=== PATIENT | female | born 1970 | race Caucasian/White ===

== ENCOUNTER 2020-06-08 10:46 | Outpatient (REF) | payer OTHER, SELFPAY ==
--- NOTE | ~2020-06-08 | MM_ITS ---
EXAMINATION: MM SCREENING DIGITAL BREAST TOMOSYNTHESIS, BILATERAL CLINICAL INFORMATION: Screening. Asymptomatic. Remote prior mammography from 2006 purged and no longer available for direct comparison. The lifetime risk of breast cancer based on the Tyrer-Cuzick Model is 5%. COMPARISON: Mammography report only, 08/28/2005. TECHNIQUE: Digital breast tomosynthesis is performed in both the craniocaudal and mediolateral oblique views along with computer-aided detection (CAD). Synthesized 2D images are generated from the tomosynthesis. FINDINGS: There are scattered areas of fibroglandular density (ACR BI-RADS breast composition Category b). Breast tissue composition borders on predominantly fatty. There is no significant mass or architectural abnormality. No abnormal calcifications. The axilla and skin contours are unremarkable. MM/MM tomosynthesis screening BI IMPRESSION: No mammographic evidence of malignancy. ASSESSMENT: BI-RADS 1: Negative RECOMMENDATION: Routine annual mammography screening. This patient's information was entered into a reminder system with a target due date for their next mammogram.
== END 2020-06-08 10:47 | disposition home or self-care (01) ==
LOC: HO.MAMMO 10:46
PROVIDERS: PCP Internal Medicine; Visit Provider Internal Medicine
DX: Z12.31 Encounter for screening mammogram for malignant neoplasm of breast (principal)
CPT/HCPCS: 77063; 77067

== ENCOUNTER 2020-07-05 11:56 | Day surgery (SDC) | payer OTHER, SELFPAY ==
[2020-06-28 17:12] VITALS: BMI 25.0
--- NOTE | 2020-07-04 10:00 | P.CONAN_ITS ---
Documented by User: Charlotte Fish 07/04/20 10:01 HPI - Anesthesia Eval Consult details Narrative: 50yo F for Colonoscopy [facility] Past Medical History Medical History (Updated 06/28/20 @ 17:10 by Ina Marlow) Asthma Cyst Hx of allergic reaction Smoker Wears dentures Surgical History Surgical History (Updated 06/28/20 @ 17:10 by Ina Marlow) Hx of tonsillectomy Hx of tubal ligation Social History Social History (Updated 06/28/20 @ 17:11 by Ina Marlow) Smoking Status: Current every day smoker Tobacco Type: Cigarette Cigarettes Per Day: 10 Years Smoked: 20 Use of substances other than those prescribed or required for medical reasons: No Advance Directives: No Advance Directives Information Provided: No Meds Allergies Allergy/AdvReac Type Severity Reaction Status Date / Time aspirin [ASPIRIN] Allergy Unknown Unknown Verified 03/23/20 14:33 Penicillins [PENICILLINS] Allergy Unknown Unknown Verified 03/23/20 14:33 Home Medications Medication Instructions Recorded Confirmed Last Taken Type albuterol sulfate [ProAir HFA] 2 puff INHALATION Q4-6H PRN 03/23/20 06/28/20 Unknown History ergocalciferol (vitamin D2) 1 cap PO QWEEK 03/23/20 03/23/20 Unknown History Exam Exam Date and Time: July 04, 2020 1000 Height,Weight and Vital Signs: Height 5 ft 5 in Weight 68.039 kg Assessment and Plan Assessment Anesthesia Assessment: Chart Reviewed Documented by User: Carlos Owusu MD 07/05/20 12:16 [facility] Past Medical History Medical History (Updated 06/28/20 @ 17:10 by Ina Marlow) Asthma Cyst Hx of allergic reaction Smoker Wears dentures Surgical History Surgical History (Updated 06/28/20 @ 17:10 by Ina Marlow) Hx of tonsillectomy Hx of tubal ligation Social History Social History (Updated 03/09/21 @ 17:11 by Ina Huizar Smoking Status: Current every day smoker Tobacco Type: Cigarette Cigarettes Per Day: 10 Years Smoked: 20 Use of substances other than those prescribed or required for medical reasons: No Advance Directives: No Advance Directives Information Provided: No Meds Allergies Allergy/AdvReac Type Severity Reaction Status Date / Time aspirin [ASPIRIN] Allergy Unknown Unknown Verified 03/23/20 14:33 Penicillins [PENICILLINS] Allergy Unknown Unknown Verified 03/23/20 14:33 Home Medications Medication Instructions Recorded Confirmed Last Taken Type albuterol sulfate [ProAir HFA] 2 puff INHALATION Q4-6H PRN 03/23/20 06/28/20 Unknown History ergocalciferol (vitamin D2) 1 cap PO QWEEK 03/23/20 03/23/20 Unknown History Exam Airway Mallampati Class: II TM Dist: >3cm Neck ROM: Full Denture: Upper Partial: Lower Loose/Missing/Broken Teeth: Yes Heart: RRR Lungs: NL Assessment and Plan Assessment Anesthesia Assessment: Anesthesia Plan Discussed and Chart Reviewed Final Anesthetic Review NPO: Yes ASA Class: II Final Preanesthetic Review: No Changes in Pt Med Stat, Meds/Allgs Chart Revie wed, Consent Obtained/Reviewed and Anes Risks/Benef Reviewed Patient Risk: Low Procedure Risk: Low Anesthetic Plan Anesthetic Plan: MAC: Disposition: Standard PACU
[2020-07-05 12:11] VITALS: BP 146/103; PULSE 80; RESP 18; TEMP 36.1; O2SAT 95
--- NOTE | 2020-07-05 12:21 | P.HPSUR_ITS ---
Pre-Procedural Eval Section B Chief Complaint: screening Details of Present Illness: Colon cancer screening had had prev sched in March but cancelled due to risk exposure family to Covid. No clinical changes and she did not get Covid. Relevant Family History (Specify if Yes): No Relevant Social History: Tobacco Use ( light cigarette smoker) Present Medications: see Short Stay Collaborative assessment Medical History: Significant History History of Previous Operations: Relevant previous surgery/procedure and date(s) (None listed.) Allergies: Allergies Allergy/AdvReac Type Severity Reaction Status Date / Time aspirin [ASPIRIN] Allergy Unknown Unknown Verified 03/23/20 14:33 Penicillins [PENICILLINS] Allergy Unknown Unknown Verified 03/23/20 14:33 Review of Systems Sugical H&P ROS: Negative: Constitution, Cardiovascular, Respiratory, Allergic/I mmunologic and Gastrointestinal Exam Surgical H&P Exam: Normal: HEENT, Normal: Heart, Normal: Lungs, Normal: Extremities, Normal: Abdomen, Normal: Skin and Normal: Neurological Plan Diagnosis/Plan: Unchanged I have reviewed the history and physical and performed a pertinent physical examination on my patient. No changes have occurred unless specified.Yes
[2020-07-05] MEDS: Lactated Ringers 1,000 ML 100 ML IVCONT (12:26)
[2020-07-05 12:55] VITALS: BP 104/78; PULSE 65; RESP 16; TEMP 36.2; O2SAT 98
--- NOTE | 2020-07-05 12:58 | PM.OP ---
Brief Operative Note Date of Service: 07/05/20 Pre-op diagnosis: Colon cancer screening Post-op diagnosis: other (Normal exam; 1+ Internal hemorrhoids) Procedure: Colonoscopy Implants: None Surgeon: Danielle Dudley MD Anesthesia: MAC (MD Kati) Estimated blood loss (mL): 0 Pathology: none sent Condition: stable Disposition: PACU
[2020-07-05 13:10] VITALS: BP 148/106; PULSE 82; RESP 16; TEMP 36.2; O2SAT 95
--- NOTE | 2020-07-10 10:51 | W.PM.OPN ---
Operative Note Operative Note Date of Service: 07/05/20 Narrative: Pre-op diagnosis: Colon cancer screening Post-op diagnosis: other (Normal exam; 1+ Internal hemorrhoids) Procedure: Colonoscopy Implants: None Surgeon: Danielle Dudley MD Anesthesia: MAC (MD Kati) FINDINGS: BARBIE: normal Adult slim colonoscope was introduced without difficulty. It was navigated through, rectosigmoid, descending, transverse colon. Continued to advance through Hepatic Flexure, ascending colon into the cecum. Appendiceal orifice and ileocecal valve were well seen. PREP: Good. Few areas needed some flushing. No mucosal lesions were seen. Slow rotational views were done on withdrawal of scope. ARV was clear. Estimated blood loss (mL): 0 Pathology: none sent Condition: stable Disposition: PACU PLAN: Repeat asymptomatic screening in this lady with no known high risk history would be 10 years.
== END 2020-07-05 13:55 | disposition home or self-care (01) ==
PROVIDERS: Visit Provider Internal Medicine Gastroenterology
PROC: 0DJD8ZZ Inspection of Lower Intestinal Tract, Via Natural or Artificial Opening Endoscopic (ICD-10-PCS; CPT 45378; principal; 2020-07-05 11:50)
DX: Z12.11 Encounter for screening for malignant neoplasm of colon (principal); K64.8 Other hemorrhoids; J45.909 Unspecified asthma, uncomplicated; F17.210 Nicotine dependence, cigarettes, uncomplicated; Z79.899 Other long term (current) drug therapy; Z88.0 Allergy status to penicillin; Z88.8 Allergy status to other drugs, medicaments and biological substances
CPT/HCPCS: 45378

== ENCOUNTER → 2020-07-27 13:42 | Outpatient (BNVA) | payer OTHER, SELFPAY | PROVIDERS: Visit Provider Physician Assistant ==

== ENCOUNTER 2020-08-24 10:47 | Outpatient (REF) | payer OTHER, SELFPAY ==
[2020-08-24 11:24] LABS: COVID-19 Test Negative (Negative)
== END 2020-08-24 10:48 | disposition home or self-care (01) ==
LOC: HO.LAB 10:47
PROVIDERS: Visit Provider Internal Medicine
DX: Z20.822 Contact with and (suspected) exposure to COVID-19 (principal)
CPT/HCPCS: 36415; 87635; C9803

== ENCOUNTER 2020-11-21 09:04 | Outpatient (REF) | payer OTHER, SELFPAY ==
--- NOTE | 2020-11-21 | PFT_ITS ---
FLOWS: FEV1 63% of predicted at 1.81 L. FVC 65% of predicted at 2.30 L. FEV1 to FVC ratio of 0.79. Positive bronchodilator response. LUNG VOLUMES: Total lung capacity 82% of predicted at 4.30 L. Residual volume 106% of predicted at 1.99 L. Slow vital capacity 69% of predicted at 2.31 L. Expiratory reserve volume 56% of predicted at 0.60 L. Diffusion capacity is mildly decreased. IMPRESSION: Moderate to severe obstructive ventilatory defect with positive bronchodilator response. Decreased diffusion capacity suggests emphysema. MD JUAN DANIEL Guevara/MODL / [id number]
== END 2020-11-21 09:05 | disposition home or self-care (01) ==
LOC: HO.RESP 09:04
PROVIDERS: PCP Internal Medicine; Visit Provider Internal Medicine
DX: R06.02 Shortness of breath (principal)
CPT/HCPCS: 94060; 94727; 94729

== ENCOUNTER → 2021-07-20 13:04 | Outpatient (BNVA) | payer OTHER, SELFPAY | PROVIDERS: PCP Internal Medicine; Visit Provider Internal Medicine | DX: S29.012A Strain of muscle and tendon of back wall of thorax, initial encounter (principal); X50.1XXA Overexertion from prolonged static or awkward postures, initial encounter | CPT/HCPCS: 99203 ==

== ENCOUNTER → 2021-07-24 09:40 | Outpatient (BNVA) | payer OTHER, SELFPAY | PROVIDERS: PCP Internal Medicine; Visit Provider Physician Assistant Medical | DX: S29.012D Strain of muscle and tendon of back wall of thorax, subsequent encounter (principal); X58.XXXD Exposure to other specified factors, subsequent encounter | CPT/HCPCS: 99213 ==

== ENCOUNTER → 2021-07-31 13:16 | Outpatient (BNVA) | payer OTHER, SELFPAY | PROVIDERS: PCP Internal Medicine; Visit Provider Physician Assistant Medical | DX: S29.012A Strain of muscle and tendon of back wall of thorax, initial encounter (principal); X58.XXXA Exposure to other specified factors, initial encounter | CPT/HCPCS: 99213 ==

== ENCOUNTER → 2021-08-10 09:53 | Outpatient (BNVA) | payer OTHER, SELFPAY | PROVIDERS: PCP Internal Medicine; Visit Provider Physician Assistant Medical | DX: S29.012D Strain of muscle and tendon of back wall of thorax, subsequent encounter (principal); X58.XXXD Exposure to other specified factors, subsequent encounter | CPT/HCPCS: 99213 ==

== ENCOUNTER → 2021-08-24 09:43 | Outpatient (BNVA) | payer OTHER, SELFPAY | PROVIDERS: PCP Internal Medicine; Visit Provider Physician Assistant Medical | DX: S29.012D Strain of muscle and tendon of back wall of thorax, subsequent encounter (principal); X58.XXXD Exposure to other specified factors, subsequent encounter | CPT/HCPCS: 99213 ==

== ENCOUNTER 2021-09-11 14:00 | Outpatient (RCR) | payer OTHER, SELFPAY ==
--- NOTE | 2021-08-02 10:50 | MHC.PT.EP ---
[facility] [place] Office [place] Office [place] Office [address] [phone] F: [phone] F: [phone] F: [phone] F: [phone] Physical Therapy Plan of Care Date of Evaluation: Date of Surgery: N/A Diagnosis: L thoracic strain Assessment: pt presents to physical therapy with pain, decreased range of motion, decreased strength, impaired functional mobility, impaired postural awareness, and gait deviations. pt is a good candidate for skilled PT due to age, potential remediation of impairments, typical disease/condition progression and prognosis, comorbidities, and motivation. pt would benefit from tailored strengthening and stretching exercise program, functional training, gait training, postural re-training, neuromuscular re-education, modalities as needed for pain, equipment safety demonstration. Frequency and Duration: The patient will be seen 2x/wk for 4 wks Short Term Goals: pt will be I w/ HEP to promote self-management of condition. pt will demo proper sitting posture w/ lumbar roll to promote neutral spine w/ seated ADLs. [employer] Goals: pt will report a statistically significant improvement in self-reported outcome measure to promote return to PLOF. pt will improve B hip ABD strength to at least 4/5 to remediate trunk lean w/ gait on even ground. Treatment Plan: Modalities to reduce pain, spasms and effusion. Manual therapy to restore motion and function. Therapeutic exercise to improve strength and flexibility. Neuromuscular re-education for posture and balance. Therapeutic activities to return to functional activities of daily living. Electronically signed by: Abbey Patino PT, DPT Please sign and return to therapist. Thank you for your referral.
--- NOTE | 2021-09-12 13:36 | MHC.PT.DC ---
[facility] [place] Office [place] Office [place] Office [address] [phone] F: [phone] F: [phone] F: [phone] F: [phone] Physical Therapy Discharge Report Diagnosis: L thoracic strain Date of Surgery: N/A Date of Evaluation: 08/02/21 Date of Discharge: 09/12/21 Treatments to Date: 6 Cancellations to Date: 4 No Shows to Date: 0 Discharge Status: Achieved Goals Improved Function Independent with HEP Discharge Summary: The patient reported her back pain is better. She reported a 0 on her Modified Oswestry Disability Index indicating she has no pain with activities of daily living and work-related tasks. She is independent with her home exercise program. She achieved all her short and senior living goals. She is independent with functional lifting mechanics. The patient is discharged from this physical therapy plan of care to her home exercise program. Electronically signed by: Abbey Patino PT, DPT Please sign and return to therapist. Thank you for your referral.
== END 2021-09-12 13:36 | disposition home or self-care (01) ==
LOC: HO.PT 14:00
PROVIDERS: Visit Provider Physician Assistant Medical
DX: S29.012D Strain of muscle and tendon of back wall of thorax, subsequent encounter (principal)
CPT/HCPCS: 97110; 97112; 97161

== ENCOUNTER → 2021-09-11 15:06 | Outpatient (BNVA) | payer OTHER, SELFPAY | PROVIDERS: PCP Internal Medicine; Visit Provider Physician Assistant Medical | DX: S29.012D Strain of muscle and tendon of back wall of thorax, subsequent encounter (principal); X58.XXXD Exposure to other specified factors, subsequent encounter | CPT/HCPCS: 99213 ==

== ENCOUNTER → 2021-09-21 14:13 | Outpatient (BNVA) | payer OTHER, SELFPAY | PROVIDERS: PCP Internal Medicine; Visit Provider Physician Assistant Medical | DX: S29.012D Strain of muscle and tendon of back wall of thorax, subsequent encounter (principal); X58.XXXD Exposure to other specified factors, subsequent encounter | CPT/HCPCS: 99213 ==

== ENCOUNTER → 2022-02-09 10:59 | Outpatient (BNVA) | payer OTHER, SELFPAY | PROVIDERS: PCP Internal Medicine; Visit Provider Internal Medicine | DX: S39.012A Strain of muscle, fascia and tendon of lower back, initial encounter (principal); X50.1XXA Overexertion from prolonged static or awkward postures, initial encounter | CPT/HCPCS: 99202 ==

== ENCOUNTER → 2022-02-15 13:11 | Outpatient (BNVA) | payer OTHER, SELFPAY | PROVIDERS: PCP Internal Medicine; Visit Provider Internal Medicine | DX: S39.012A Strain of muscle, fascia and tendon of lower back, initial encounter (principal); X50.1XXA Overexertion from prolonged static or awkward postures, initial encounter | CPT/HCPCS: 99213 ==

== ENCOUNTER → 2022-02-22 15:14 | Outpatient (BNVA) | payer OTHER, SELFPAY | PROVIDERS: PCP Internal Medicine; Visit Provider Internal Medicine | DX: S39.012D Strain of muscle, fascia and tendon of lower back, subsequent encounter (principal); X50.1XXD Overexertion from prolonged static or awkward postures, subsequent encounter | CPT/HCPCS: 99213 ==

== ENCOUNTER 2023-10-03 15:23 | Outpatient (REF) | payer OTHER, SELFPAY | END 2023-10-03 15:24 | disposition home or self-care (01) | LOC: HO.MAMMO 15:23 | PROVIDERS: PCP Nurse Practitioner Family; Visit Provider Nurse Practitioner Family | DX: Z12.31 Encounter for screening mammogram for malignant neoplasm of breast (principal) | CPT/HCPCS: 77063; 77067 ==

== ENCOUNTER → 2023-10-03 15:30 | Outpatient (BNV) | payer OTHER, SELFPAY | PROVIDERS: PCP Nurse Practitioner Family; Visit Provider Radiology Diagnostic Radiology | DX: Z12.31 Encounter for screening mammogram for malignant neoplasm of breast (principal) | CPT/HCPCS: 77063; 77067 ==

== ENCOUNTER 2025-03-10 14:22 | Inpatient (IN) | payer OTHER, SELFPAY ==
[2025-03-10] VITALS (8 sets, daily range): BP systolic 103–125; BP diastolic 66–82; PULSE 90–109; RESP 18–22; TEMP 36.4–37; O2SAT 88–96; BMI 20.2
--- NOTE | ~2025-03-10 | CT_ITS ---
CLINICAL HISTORY: severe hpyoxia CT angiography chest with contrast. 3D Postprocessing. Comparison: CT - CT ANGIO CHEST PE PROTOCOL - 03/13/25 11:41 EST CR - XR CHEST 1V - 03/13/25 11:06 EST Findings: The heart size is normal. RV/LV ratio is normal. Unremarkable thoracic aorta and great vessels. No aneurysm. No acute pulmonary embolus. The visualized thyroid and mediastinum are unremarkable. There is complete opacification of the bronchus intermedius and segmental right lower lobe bronchi. Moderate right and mild left bibasilar airspace opacity is present. The upper abdomen is unremarkable. No acute fractures. IMPRESSION: 1. No pulmonary embolus. 2. Bilateral pneumonia. 3. Opacification of the bronchus intermedius and the right lower lobe bronchi, presumably secondary to mucous plugging. Bronchoscopy may be helpful to exclude underlying neoplasm. This document has been electronically signed by: Pedro Pablo Collier MD on 03/13/2025 13:19:32
--- NOTE | ~2025-03-10 | XR_ITS ---
EXAMINATION: XR CHEST 1 VIEW HISTORY: sob COMPARISON: Comparison is made with the prior examination dated 05/16/2018. FINDINGS: A single AP portable view of the chest performed at 3:26 PM is submitted. There is patchy airspace opacity at the right lung base, consistent with pneumonia. The left lung is clear. There is no pleural effusion, pneumothorax, or pulmonary vascular congestion. The heart is normal in size. The bones are intact. XR/XR chest 1V IMPRESSION: Right basilar pneumonia. Follow-up is recommended to document resolution. Electronically signed by: Simon Vasquez MD 03/10/2025 03:36 PM [facility]
--- NOTE | ~2025-03-10 | XR_ITS ---
CLINICAL HISTORY: sob, worsening hypoxia 1 view chest x-ray Comparison: CR/SR - XR CHEST 1 VIEW - 03/10/25 15:26 EST Findings: There is right basilar atelectasis with elevation of the right hemidiaphragm. Developing pneumonia is not excluded. Normal size heart. No acute fracture. IMPRESSION: There is right basilar atelectasis with elevation of the right hemidiaphragm. Developing pneumonia is not excluded. Please obtain PA and lateral views when possible. This document has been electronically signed by: Brayan Valverde MD on 03/13/2025 11:45:22
--- NOTE | 2025-03-10 14:39 | ED.ASTHMA ---
HPI - Asthma General Chief Complaint: Asthma Stated Complaint: asthma Time Seen by Provider: 03/10/25 14:49 Source: patient Mode of arrival: ambulatory Limitations: no limitations History of Present Illness ED Provider: Dr. Dee HPI Narrative: 54-year-old female presented hospital today for evaluation of shortness of breath. Patient stated that she has been feeling sick for a couple of days. She did noticed that she was wheezing. However noticed that her shortness of breath has worsened. She noticed her oxygen level was low at home therefore she presents to the ER for evaluation. She is complaining of a dry cough. Patient has been having some back pain from coughing as well. Denies any chest pain. Related Data Home Medications ?Medication ?Instructions ?Recorded ?Confirmed acetaminophen 500 mg tablet 1,000 mg PO Q6H PRN fever 03/10/25 03/10/25 albuterol sulfate 2.5 mg/3 mL 2.5 mg inhalation Q4H PRN 03/10/25 03/10/25 (0.083 %) solution for nebulization Shortness Of Breath Or Wheezing albuterol sulfate 90 mcg/actuation 2 puff inhalation Q4H PRN 03/10/25 03/10/25 aerosol inhaler (Ventolin HFA) Shortness Of Breath Or Wheezing amlodipine 5 mg tablet 5 mg PO DAILY 03/10/25 03/10/25 Allergies Allergy/AdvReac Type Severity Reaction Status Date / Time aspirin (ASPIRIN) Allergy Unknown Unknown Verified 03/10/25 14:50 Penicillins (PENICILLINS) Allergy Unknown Unknown Verified 03/10/25 14:50 Review of Systems Review of Systems: Pertinent review of systems as mentioned in [facility]. All other system otherwise negative. [facility] Past Medical History [facility] Narrative: Medical history as mentioned in HPI Medical History Asthma Cyst Hx of allergic reaction Smoker Wears dentures Surgical History (System 09/19/23 @ 15:41 by Devora Lopez) Hx of colonoscopy (~06/2020) Hx of tonsillectomy Hx of tubal ligation Social History Social History (System 09/19/23 @ 15:41 by Devora Lopez) Cigarettes Per Day: 10 Years Smoked: 20 Smoked in Last 30 Days: Yes Use of substances other than those prescribed or required for medical reasons: Yes Substance Use Type: Marijuana Advance Directives: No Advance Directives Information Provided: No Physical Exam Exam: Exam: General: Appears short of breath and tachypneic on exam Head: Normacephalic, atraumatic ENT: oral mucosa moist, neck supple, no tracheal deviation Cardiovascular: Tachycardic rate, regular rhythm, no murmurs, rubbing, gallops Respiratory: Diminished lung sounds bilaterally with wheezing on exam, tachypnea Extremities: No limb pain or swelling, no calf tenderness Neurological: Awake and alert, no facial droop noted Skin: Warm and dry Psychiatric: Appropriate mood and thoughts Vital Signs: Vital Signs: Last Vital Signs Temp 98.6 F 03/10/25 21:46 Pulse 101 H 03/10/25 21:46 Resp 22 H 03/10/25 21:46 BP 119/78 03/10/25 21:46 Pulse Ox 96 03/10/25 21:46 O2 Del Method Nasal Cannula 03/10/25 21:46 O2 Flow Rate 2 03/10/25 21:46 BMI result Body Mass Index 20.2 Course Course Course Narrative: This is a Rapid Medical Exam performed in triage by Hallie Gonzalez PA-C. Full HPI, ROS and PE to be performed by primary ED provider. 54-year-old female with a past medical history of asthma presenting to the ED c/o SOB, cough, wheezing, and low O2 noted 88% on room air at home. Reports symptoms times a few days. Denies chest pain PE: Audible expiratory wheeze noted. 88% on room air. Talking in short sentences Plan: EKG, labs, CXR, viral testing, ED bronch protocol Medications Administered Generic Name Dose Route Start Last Admin Trade Name Freq PRN Reason Stop Dose Admin Albuterol/Ipratropium 3 ml 03/10/25 20:00 03/10/25 20:12 Albuterol/Iprat 2.5/0.5mg 3 Ml Ampul.Neb INHALE 3 ml RQ6H WHILE AWAKE MEHUL Administration Azithromycin 500 mg 03/10/25 20:00 03/10/25 21:09 Azithromycin 500 Mg Tablet PO 500 mg Q24H MEHUL Administration Enoxaparin Sodium 40 mg 03/10/25 21:00 03/10/25 21:09 Enoxaparin Sodium 40 Mg/0.4 Ml Syringe SUBCUT 40 mg Q24H MEHUL Administration Sodium Chloride 3 ml 03/11/25 00:00 03/10/25 21:36 0.9 % Sodium Chloride Flush 3 Ml Syringe IVFLUSH Not Given QSHIFT MEHUL Discontinued Medications Generic Name Dose Route Start Last Admin Trade Name Rina PRN Reason Stop Dose Admin Albuterol Sulfate 5 mg/ 0 mg 03/10/25 15:04 03/10/25 15:07 Albuterol/Ipratropium 3 ml INHALE 03/10/25 15:05 1 each ONCE ONE Administration Albuterol Sulfate 5 mg/ 0 mg 03/10/25 16:12 03/10/25 16:14 Albuterol/Ipratropium 3 ml INHALE 03/10/25 16:13 1 each ONCE ONE Administration Magnesium Sulfate 2 gm in 50 mls @ 50 mls/hr 03/10/25 14:57 03/10/25 16:39 Magnesium Sulfate/H2o IV 03/10/25 15:56 Infused ONCE ONE Infusion Methylprednisolone Sodium Succinate 60 mg 03/10/25 14:41 03/10/25 14:56 Methylprednisolone Sod Succ 125 Mg/2 Ml Vial IVPUSH 03/10/25 14:42 60 mg ONCE ONE Administration Prednisone 60 mg 03/10/25 14:55 03/10/25 15:33 Prednisone 20 Mg Tablet PO 03/10/25 14:56 60 mg ONCE ONE Administration Medical Decision Making Medical Decision Making MDM Narrative: 54-year-old female history of asthma presented hospital today for shortness of breath. On evaluation the patient's tachypneic. And short of breath appearing. ED bronch protocol initiated for the patient. IV magnesium will be given to the patient a dose of p.o. prednisone will be provided the patient as well. We will obtain a chest x-ray for the patient. We will obtain basic lab work as well. Plan to reassess patient after medical intervention. On reassessment the patient's is moving more air however is still wheezy on exam. Satting at 92% room air at this time. I do not think patient has sepsis on my evaluation. Patient was ambulated after breathing treatment. She does desat to 85%. Patient will be admitted to the hospital for further treatment at this time. Differential Diagnosis Differential Diagnoses: The differential diagnosis associated with the presentation includes Pneumonia, asthma exacerbation, upper respiratory infection, viral pneumonia Consult Healthcare Provider Management of the patient was discussed with: Hospitalist Lab Data MDM Lab Attestation statement: I reviewed the patient's lab results. 03/10/25 14:52 03/10/25 16:41 Labs: Lab Results 03/10/25 03/10/25 Range/Units 14:52 16:41 WBC 7.0 (4.8-10.8) X10*3/uL RBC 4.78 (4.20-5.50) X10*6/uL Hgb 15.5 (12.0-16.0) g/dl Hct 44.9 (37.0-47.0) % MCV 93.9 (80.0-98.0) fL MCH 32.4 (27.0-33.0) pg MCHC 34.5 (31.0-35.0) g/dl RDW 13.2 (11.0-16.0) % Plt Count 293 (160-400) X10*3/uL MPV 9.2 L (9.4-12.3) fL Immature Gran % (Auto) 0.1 (0.0-0.4) % Neut % (Auto) 56.4 (45-73) % Lymph % (Auto) 24.3 (20-40) % Cameron % (Auto) 5.3 (2-11) % Eos % (Auto) 12.9 H (0-4) % Baso % (Auto) 1.0 (0-2) % Lymph # (Auto) 1.7 (1.2-4.9) X10*3/uL Cameron # (Auto) 0.4 (0.1-1.2) X10*3/uL Eos # (Auto) 0.9 H (0.0-0.4) X10*3/uL Baso # (Auto) 0.1 (0.0-0.2) X10*3/uL Abs Immat Gran (auto) 0.01 (0.00-0.03) X10*3/uL Absolute Neuts (auto) 3.9 (2.0-8.3) x10*3/uL Absolute Nucleated RBC 0.000 (0.0-0.012) X10*3/uL Nucleated RBC % (auto) 0.0 (0.0-0.2) /100WBC Hold Blue Top SEE NOTE Sodium 140 (135-145) mmol/L Potassium 3.3 (3.3-5.1) mmol/L Chloride 108 (96-108) mmol/L Carbon Dioxide 21 L (22-29) mmol/L Anion Gap 14 (12-20) BUN 6 L (9-16) mg/dL Creatinine 0.72 (0.5-1.4) mg/dL Estim Creat Clear Calc 76.6 Estimated GFR > 60 Random Glucose 111 (60-115) mg/dL Calcium 9.6 (8.4-10.2) mg/dL Magnesium 3.0 H (1.6-2.6) mg/dL Total Bilirubin 1.0 (0.0-1.0) mg/dL Direct Bilirubin 0.3 (0.0-0.5) mg/dL AST 18 (5-31) U/L ALT 12 (0-31) U/L Alkaline Phosphatase 97 (39-117) U/L Total Protein 7.1 (6.5-8.0) g/dL Albumin 4.4 (3.5-5.0) g/dL Influenza Type A (PCR) NEGATIVE (Negative) Influenza Type B (PCR) NEGATIVE (Negative) RSV RNA Qual (PCR) NEGATIVE (Negative) SARS-CoV-2 RNA (RT-PCR) NEGATIVE (Negative) Independent Interpretation I performed an independent interpretation of an: EKG and Plain X-Ray Critical Care Time Critical Care Time Critical Care Time: Yes Total Critical Care Time: 40 Attestation: Time is exclusive of separately billable procedures. Time includes: direct patient care, patient reassessment, coordination of patient care, interpretation of data (laboratory data, pulse oximetry, arterial blood gases and chest xrays), review of patient's medical records, medical consultation and documentation of patient care. Procedures excluded from critical care time: central intravenous line placement and electrocardiography. Discharge Plan Discharge Clinical Impression: Asthma exacerbation, Acute respiratory distress Patient Disposition: Admitted As Inpatient
--- NOTE | 2025-03-10 14:42 | ECG_ITS ---
Test Reason : sob Blood Pressure : */* mmHG Vent. Rate : 118 BPM Atrial Rate : 118 BPM P-R Int : 130 ms QRS Dur : 62 ms QT Int : 302 ms P-R-T Axes : 65 19 29 degrees QTcB Int : 423 ms Sinus tachycardia Septal infarct , age undetermined Abnormal ECG When compared with ECG of 13-Jul-2014 14:02, Septal infarct is now Present ST now depressed in Inferior leads Referred By: Hallie Gonzalez Electronically Signed By: JONNA BAUTISTA
[2025-03-10 14:56] LABS: MANUAL DIFF FLAG NO
[2025-03-10] MEDS: Albuterol Sulfate 5 MG, Albuterol/Iprat 2.5/0.5MG 3 ML 3 ML INHALE ×2 (15:07→16:14)
[2025-03-10 15:17] LABS: Hematocrit 44.9 % (37.0-47.0); Hemoglobin 15.5 g/dl (12.0-16.0); Imm Gran Abs Auto 0.01 X10*3/uL (0.00-0.03); Imm Gran Pct Auto 0.1 % (0.0-0.4); Lymphocytes Absolute Auto 1.7 X10*3/uL (1.2-4.9); Mean Corpuscular HGB Conc 34.5 g/dl (31.0-35.0); Mean Corpuscular Hemoglobin 32.4 pg (27.0-33.0); Mean Corpuscular Volume 93.9 fL (80.0-98.0); NRBC Abs Auto 0.000 X10*3/uL (0.0-0.012); NRBC Pct Auto 0.0 /100WBC (0.0-0.2); Platelet Count 293 X10*3/uL (160-400); Red Blood Count 4.78 X10*6/uL (4.20-5.50); White Blood Count 7.0 X10*3/uL (4.8-10.8)
[2025-03-10] MEDS: Magnesium Sulfate/H2O 2 GM/50 ML PIGGYBACK IV (15:33)
[2025-03-10 16:43] LABS: Resp Syncy Virus RNA Qual PCR NEGATIVE (Negative); SARS COV2 PCR INHOUSE NEGATIVE (Negative)
[2025-03-10 17:08] LABS: Alanine Aminotransferase 12 U/L (0-31); Albumin Level 4.4 g/dL (3.5-5.0); Alkaline Phosphatase 97 U/L (39-117); Anion Gap 14 (12-20); Aspartate Amino Transferase 18 U/L (5-31); Blood Urea Nitrogen 6 mg/dL (9-16); Calcium 9.6 mg/dL (8.4-10.2); Carbon Dioxide 21 mmol/L (22-29); Chloride 108 mmol/L (96-108); Creatinine Clr Calc Pharmacy 76.6; Estimated Glomerular Filt Rate > 60; Magnesium 3.0 mg/dL (1.6-2.6); Potassium 3.3 mmol/L (3.3-5.1); Sodium 140 mmol/L (135-145); Total Protein 7.1 g/dL (6.5-8.0)
--- NOTE | 2025-03-10 19:08 | PC.NURSE ---
20 g IV in right AC
--- NOTE | 2025-03-10 19:21 | PC.NURSE ---
ambulatory pulse ox 85% on RA, HR 120. pt reported feeling sob/lightheaded with ambulation. pt assisted back to stretcher and placed 2L MD Luiz LAMA notified.
--- NOTE | 2025-03-10 19:56 | P.HPHOSP_ITS ---
History of Present Illness Date of Service: 03/10/25 Chief Complaint: Shortness of breath 54-year-old female with a past medical history of asthma presented to the hospital with a chief complaint of shortness of breath. Patient reports that over the past few days since Saturday; has been having shortness of breath. Using her inhalers with no improvement. Has been gradually worsening. Has been having cough. Denies any fevers. Denies any chest pain or palpitations. Denies any GI or symptoms. Review of all other systems is negative except mentioned above ER course: Per ER team, patient on presentation noted to be has bilateral wheezing, tachypneic and tachycardic; given nebulizations, steroids, magnesium IV; respiratory status improved. Patient was hypoxic to 88%. Placed on supplemental oxygen. Chest x-ray showed no acute cardiopulmonary process. [facility] Medical History Asthma Cyst Hx of allergic reaction Smoker Wears dentures Surgical History (System 09/19/23 @ 15:41 by Devora Lopez) Hx of colonoscopy (~06/2020) Hx of tonsillectomy Hx of tubal ligation Social History (System 09/19/23 @ 15:41 by Devora Lopez) Cigarettes Per Day: 10 Years Smoked: 20 Advance Directives: No Advance Directives Information Provided: No Meds Allergies Allergy/AdvReac Type Severity Reaction Status Date / Time aspirin (ASPIRIN) Allergy Unknown Unknown Verified 03/10/25 14:50 Penicillins (PENICILLINS) Allergy Unknown Unknown Verified 03/10/25 14:50 Active Medications: Current Medications Acetaminophen (Acetaminophen 325 Mg Tablet) 650 mg PO Q6H PRN PRN Reason: Pain, Mild 1-3,fever,headache Albuterol/Ipratropium (Albuterol/Iprat 2.5/0.5mg 3 Ml Ampul.Neb) 3 ml INHALE Q4H PRN PRN Reason: Shortness of Breath/Wheezing Albuterol/Ipratropium (Albuterol/Iprat 2.5/0.5mg 3 Ml Ampul.Neb) 3 ml INHALE RQ6H WHILE AWAKE MEHUL Azithromycin (Azithromycin 500 Mg Tablet) 500 mg PO Q24H MEHUL Calcium Carbonate (Calcium Carbonate 750 Mg Tab.Chew) 750 mg PO Q4H PRN PRN Reason: Heartburn Enoxaparin Sodium (Enoxaparin Sodium 40 Mg/0.4 Ml Syringe) 40 mg SUBCUT Q24H MEHUL Magnesium Hydroxide (Milk Of Magnesia 30 Ml Oral.Susp) 30 ml PO DAILY PRN PRN Reason: Constipation Melatonin (Melatonin 3 Mg Tablet) 6 mg PO BEDTIME PRN PRN Reason: Insomnia Methylprednisolone Sodium Succinate (Methylprednisolone Sod Succ 40 Mg/Ml Vial) 40 mg IVPUSH Q6H MEHUL Sodium Chloride (0.9 % Sodium Chloride Flush 3 Ml Syringe) 3 ml IVFLUSH QSHIFT MEHUL Home Medications ?Medication ?Instructions ?Recorded ?Confirmed ?Last Taken ?Type albuterol sulfate 90 mcg/actuation 2 puff inhalation Q 4-6H PRN 03/23/20 07/27/20 Unknown History aerosol inhaler (ProAir HFA) Shortness Of Breath ergocalciferol (vitamin D2) 1,250 1 cap PO QWEEK 03/2307/27/20 Unknown History mcg (50,000 unit) capsule acetaminophen 500 mg tablet 500 mg PO Q6H PRN 07/27/20 07/27/20 Unknown History chlorhexidine gluconate 0.12 % ml PO 07/27/20 07/27/20 Unknown History mouthwash clindamycin HCl 150 mg capsule 150 mg PO Q6H 07/27/20 07/27/20 Unknown History Physical Exam 2 Vital Signs and Narrative: Vital Signs: Last Vital Signs Temp 98.2 F 03/10/25 19:07 Pulse 99 03/10/25 19:07 Resp 18 03/10/25 19:07 BP 125/82 03/10/25 19:07 Pulse Ox 95 03/10/25 19:07 O2 Del Method Nasal Cannula 03/10/25 19:07 O2 Flow Rate 2 03/10/25 19:07 BMI result Body Mass Index 20.2 Gen: Appears be in no acute distress HEENT: NCAT, Moist mucosa. Pulmonary: wheezing present CVS: Normal S1-S2 Abdomen: BS+, Soft, Nontender Extremities: Warm well perfused Neuro: Alert and awake. Results Labs 03/10/25 14:52 03/10/25 16:41 Labs: Laboratory Results - last 24 hr 03/10/25 03/10/25 14:52 16:41 MCV 93.9 MCH 32.4 MCHC 34.5 RDW 13.2 Plt Count 293 MPV 9.2 L Immature Gran % (Auto) 0.1 Neut % (Auto) 56.4 Lymph % (Auto) 24.3 [place] % (Auto) 5.3 Eos % (Auto) 12.9 H Baso % (Auto) 1.0 Lymph # (Auto) 1.7 [place] # (Auto) 0.4 Eos # (Auto) 0.9 H Baso # (Auto) 0.1 Abs Immat Gran (auto) 0.01 Absolute Neuts (auto) 3.9 Absolute Nucleated RBC 0.000 Nucleated RBC % (auto) 0.0 Hold Blue Top SEE NOTE Anion Gap 14 Estim Creat Clear Calc 76.6 Estimated GFR > 60 Random Glucose 111 Calcium 9.6 Magnesium 3.0 H Total Bilirubin 1.0 Direct Bilirubin 0.3 AST 18 ALT 12 Alkaline Phosphatase 97 Total Protein 7.1 Albumin 4.4 Influenza Type A (PCR) NEGATIVE Influenza Type B (PCR) NEGATIVE RSV RNA Qual (PCR) NEGATIVE SARS-CoV-2 RNA (RT-PCR) NEGATIVE Imaging Radiologist's Impressions: Impressions Chest X-Ray 03/10/25 15:26 IMPRESSION: Right basilar pneumonia. Follow-up is recommended to document resolution. Electronically signed by: Simon Vasquez MD 03/10/2025 03:36 PM [facility] [place] Assessment and Plan (1) Asthma exacerbation: Qualifiers: Asthma severity: unspecified severity Asthma persistence: unspecified Qualified Code(s): J45.901 - Unspecified asthma with (acute) exacerbation Status: Acute Plan 54-year-old female with a past medical history of asthma presented to the hospital with a chief complaint of shortness of breath. Noted to be in acute asthma exacerbation. Acute hypoxic respiratory failure: Acute asthma exacerbation: Patient respiratory status improved. Placed on supplemental oxygen Patient able to speak in full sentences currently Continue nebulizations standing and p.r.n. Continue Solu-Medrol Azithromycin Trending pulse oximetry and ready for discharge DVT prophylaxis: Lovenox Code status: Full code Quality Stroke Does the patient have a stroke diagnosis?: No VTE Prior VTE?: No VTE Risk Level:: Medical - moderate - high VTE Device Contraindication: Treatment Not Indicated VTE Drug Contraindication: N/A - Med Ordered
[2025-03-10] MEDS: Albuterol/Iprat 2.5/0.5MG 3 ML AMPUL.NEB INHALE (20:12)
--- NOTE | 2025-03-10 20:18 | PHA.MEDREC ---
Addendum entered by Juarez Oconnor PharmD 03/10/25 20:19: reviewed Original Note: Pharmacy Consult ? Medication Reconciliation Pharmacy has completed the medication reconciliation. Spoke with pt and she confirmed her medications. Pt confirmed she has not been able to take anything for the last few days since being sick.
[2025-03-11] VITALS (10 sets, daily range): BP systolic 108–130; BP diastolic 59–83; PULSE 54–112; RESP 17–20; TEMP 36.8–37.2; O2SAT 88–97; BMI 20.6
--- OUTSIDE RECORDS SUMMARY | 2025-03-11 03:46 | XMS_ITS | Clinical Summary ---
Author Organization [employer] Address [address] [place] [address] Care Team Providers Care Web Marketing Coordinator Name Role Phone EricEm shoemaker TREMAINE Primary Care Provider [phone] Allergies Active Allergy Reactions Criticality Noted Date Comments Aspirin 06/07/2022 Penicillins 06/07/2022 Medications Dextromethorpha n-guaiFENesin (Mucinex DM) 30-600 MG tablet sustained-relea se 12 hourIndications :COVID-19 Take 30 mg by mouth in the morning and at bedtime. 28 tablet 03/26/20 22 Active Additional Information Patient not taking.Reported on 08/22/2023 acetaminophen (Tylenol) 325 MG tabletIndicatio ns:Acute URI TAKE 1 TABLET BY MOUTH EVERY 8 HOURS NEEDED FOR PAIN OR FEVER 30 tablet 08/15/19 23 Active Blood Pressure Monitoring (Blood Pressure Cuff) miscIndications :Elevated blood pressure reading 1 Application if needed each day (use daily prn). 30 each 09/13/19 24 Active Fluticasone-Mingo meterol (Advair Diskus) 100-50 MCG/ACT aerosol powderIndicatio ns:Moderate persistent asthma, unspecified whether complicated Inhale 1 puff every 12 (twelve) hours. 1 each 09/13/19 24 Active ipratropium (Atrovent) 17 MCG/ACT inhaler Inhale 2 puffs in the morning, at noon, in the evening, and at bedtime. 12.9 g 11 04/21/20 24 2024 Active nicotine (Nicoderm CQ) 14 MG/24HR patch Place 1 patch on the skin 1 (one) time each day at the same time. 42 patch 07/09/19 25 Active nicotine (Nicoderm CQ) 7 MG/24HR patch Place 1 patch on the skin 1 (one) time each day at the same time. 14 patch 07/09/19 25 Active nicotine polacrilex (Commit) 2 MG lozenge Dissolve 1 lozenge (2 mg) in the mouth if needed for smoking cessation. 100 lozenge 07/09/19 25 Active acetaminophen (Tylenol) 500 MG tablet Take 2 tablets (1,000 mg) by mouth every 6 (six) hours if needed for moderate pain or fever for up to 25 doses. 50 tablet 07/09/19 25 Active Misc. Devices (Pulse Oximeter For Finger) misc 1 each 2 times daily. 1 each 02/18/20 25 Active azithromycin (Zithromax Z-Jose Rafael) 250 MG tablet Take 2 tablets once on day 1, then 1 tablet 1x/day for 4 days. 6 tablet 02/18/20 25 Active albuterol 108 (90 Base) MCG/ACT inhalerIndicati ons:Moderate persistent asthma with acute exacerbation INHALE 2 PUFFS BY MOUTH EVERY 4 HOURS NEEDED FOR WHEEZING 18 g 3 02/18/20 25 Active amLODIPine (Norvasc) 5 MG tablet Take 1 tablet (5 mg) by mouth Once per day. 30 tablet 02/18/20 25 2025 Active albuterol (2.5 MG/3ML) 0.083% nebulizer solutionIndicat ions:Moderate persistent asthma with acute exacerbation USE 1 AMPULE USING A NEBULIZER EVERY 4 HOURS NEEDED FOR COUGH, FOR WHEEZING OR SHORTNESS OF BREATH 90 mL 1 03/04/20 25 Active telmisartan (Micardis) 20 MG tabletIndicatio ns:Hypertension , unspecified type Take 1 tablet (20 mg) by mouth Once per day. 30 tablet 11 04/21/20 24 2024 Discontinued(S bryanna effects) hydroCHLOROthia zide 12.5 MG tabletIndicatio ns:Primary hypertension TAKE 1 TABLET BY MOUTH EVERY DAY 30 tablet 1 08/01/19 25 2024 Discontinued(S bryanna effects) albuterol (2.5 MG/3ML) 0.083% nebulizer solutionIndicat ions:Moderate persistent asthma with acute exacerbation INHALE 1 AMPULE USING A NEBULIZER EVERY 4 HOURS NEEDED FOR COUGH, WHEEZING, OR SHORTNESS OF BREATH 90 mL 1 02/04/20 25 2024 Discontinued(R eorder (will not trigger notification to Pharmacy)) albuterol 108 (90 Base) MCG/ACT inhalerIndicati ons:Moderate persistent asthma with acute exacerbation INHALE 2 PUFFS BY MOUTH EVERY 4 HOURS NEEDED FOR WHEEZING 18 g 3 02/04/20 25 2024 Discontinued(R eorder (will not trigger notification to Pharmacy)) predniSONE (Deltasone) 20 MG tablet Take 2 tablets (40 mg) by mouth Once per day for 5 days. 10 tablet 02/18/20 25 2024 albuterol (2.5 MG/3ML) 0.083% nebulizer solutionIndicat ions:Moderate persistent asthma with acute exacerbation INHALE 1 AMPULE USING A NEBULIZER EVERY 4 HOURS NEEDED FOR COUGH, WHEEZING, OR SHORTNESS OF BREATH 90 mL 1 4:29 PM EST 02/18/202024 Discontinued Hospital, Clinic, or Other Facility Administered Medication Ordered Dose Route Frequency Start Date End Date Status albuterol (2.5 MG/3ML) 0.083% nebulizer solution 2.5 mgIndications:Modera te persistent asthma with acute exacerbation 2.5 mg NEBULIZATION Once 02/17/2025 02/17/2025 Ended predniSONE (Deltasone) tablet 40 mgIndications:Modera te persistent asthma with acute exacerbation 40 mg PO Once 02/17/2025 02/17/2025 Ended Active Problems Problem Noted Date Diagnosed Date Hypertension 04/21/2024 Assessment & Plan (04/21/2024 4:47 PM EST): Above goal add arb Return to clinic in 3 weeks sooner prn Primary hypertension 04/13/2024 Elevated blood pressure reading 09/13/2023 Assessment & Plan (09/13/2023 6:04 PM EDT): Home cuff and bp log given, Rtc in 4 weeks Moderate persistent asthma 09/13/2023 Assessment & Plan (04/21/2024 4:46 PM EST): Increase preventative inhaler to 2 puffs bid Trial atrovent X-ray ordered Suspect early copd, though pt denies sig production or sob Pft ordered Assessment & Plan (09/13/2023 6:04 PM EDT): Resume advair, Medication Indications, side effects and duration of therapy reviewed, pt aware to call clinic for worsening symptoms or failure to resolve Tobacco dependence 09/13/2023 Assessment & Plan (09/13/2023 6:03 PM EDT): 10 cigarettes per day , declines assistance today Urticaria 09/13/2023 Wrist pain, chronic, right 09/13/2023 Assessment & Plan (09/13/2023 6:04 PM EDT): X-ray ordered, Continue with brace Seborrheic dermatitis of scalp 09/30/2017 Encounters Date Type Department Care Team Description 03/10/2025 Orders Only GENERIC EXTERNAL DATA DEPARTMENT Provider, Generic External Data 03/03/2025 Refill [facility] [address] [place] [phone] Dylan Humphreys MD Moderate persistent asthma with acute exacerbation 02/22/2025 Telephone [facility] MEDICINE [address] [place] [address] [phone] Em Gil NP Prior Authorization 02/17/2025 9:00 AM EDT Office Visit [facility] [address] [place] [address] [phone] Dylan Humphreys MD Moderate persistent asthma with acute exacerbation (Primary Dx); Primary hypertension; Moderate persistent asthma with acute exacerbation 02/17/2025 Telephone [facility] [address] [place] [address] [phone] Dylan Humphreys MD Nurse Triage 02/17/2025 Travel 02/03/2025 Refill [facility] [address] [place] [address] [phone] Em Gil NP Moderate persistent asthma with acute exacerbation 01/01/2025 Refill [facility] [address] [place] [address] [phone] Em Gil NP Moderate persistent asthma with acute exacerbation from Last 3 Months Social History Tobacco Use Types Packs/Day Years Used Date Smoking Tobacco: Every Day Cigarettes Passive Smoke Exposure: Past Smokeless Tobacco: Never Tobacco Cessation:Ready to Q uit: Not Asked; Counseling Given: Not Answered Alcohol Use Standard Drinks/Week Comments Yes 0 (1 standard drink = 0.6 oz pur e alcohol) Depression Answer Date Recorded Patient Health Questionnaire-9 Score 0 09/13/2023 Patient Health Questionnaire-9 Score 0 09/13/2023 Last PHQ-9: Questionnaire Data Not on file 0 09/13/2023 Housing Stability Answer Date Recorded What is your housing situation today? I have hayden silva 09/13/[address] you li ve. Do you have problems with any of the following? None of the above 09/13/2023 Food Insecurity Answer Date Recorded Within the past 12 months, y ou worried that your food would run out before you got money to buy more: Never True 09/13/2023 Within the past 12 months,th e food you bought just didn't last and you didn't have enough money to get more: Never True Transportation Answer Date Recorded In the past 12 months, has l ack of transportation kept you from medical appts, meetings, work or from getting things needed for daily living? No 09/13/2023 Utilities Answer Date Recorded In the past 12 months, has t he electric, gas, oil or water company threatened to shut off services in your home? No 09/13/2023 Depression Answer Date Recorded Patient Health Questionnaire-2 Score 0 09/13/2023 Comments Unknown Sex and Gender Information Value Date Recorded Sex Assigned at Female 02/19/2022 10:21 AM EDT Legal Sex Female 10:21 AM EDT Gender Identity Female 02/19/2022 10:21 AM EDT Sexual Orientation Straight 02/19/2022 10 :21 AM EDT Last Filed Vital Signs Vital Sign Reading Time Taken Comments Blood Pressure 157/100 02/17/2025 8:48 AM EDT Pulse 95 02/17/2025 8:48 AM EDT Temperature 36.5 C (97.7 F) 02/17/2025 8:48 AM EDT Respiratory Rate 25 02/17/2025 8:48 AM EDT Oxygen Saturation 88% 02/17/2025 8:48 AM EDT Inhaled Oxygen Concentration - - Weight 59 kg (130 lb) 07/10/2024 10:00 AM EDT Height 165.1 cm (5' 5 ) 07/10/2024 10:00 AM EDT Body Mass Index 21.63 07/10/2024 10:00 AM EDT Plan of Treatment Health Maintenance Due Date Last Done Comments CT Colonography 1969 Dental Prophylaxis 1969 Dental X-Ray: Bitewings 1969 Dental X-Ray: Full Mouth 1969 FIT DNA/Cologuard 1969 FIT 1969 FOBT 1970 Sigmoidoscopy 1970 Disability Screening 1969 Hepatitis C Screening 1987 DTaP/Tdap/Td Vaccines (1 - Tdap) 1988 Hepatitis B Vaccines (1 of 3 - 19+ 3-dose series) 1988 Pneumococcal Vaccine: 50+ Years (1 of 2 - PCV) 1988 RSV Patients and Patients Aged 60 years or older (1 - Risk 50-74 years 1-dose series) 2019 Zoster Vaccines (1 of 2) 2019 Dental Oral Exam 01/20/2021 07/19/2020 Depression Screening 09/12/2024 09/13/2023, 09/13/2023 SDOH Screening 09/12/2024 09/13/2023 Lipid Panel 11/25/2024 11/26/2019 Cervical Cancer Screening 12/09/2024 HPV/Cotest 12/09/2024 12/10/2019 Pap Smear 12/09/2024 12/10/2019 COVID-19 Vaccine (1 - 2024-2 6 season) 2024 Influenza Vaccine (#1) 2024 Alcohol/Substance Use Screening 04/21/2025 04/21/2024 Mammogram 10/02/2025 10/03/2023, 06/08/2020 Tobacco Screening 02/17/2026 02/17/2025 Colonoscopy 07/10/2030 07/10/2020 Colorectal Cancer Screening 07/10/2030 HIV Screening Completed 11/26/2019 HIB Vaccines Aged Out No longer eligi ble based on patient's age to complete this topic HPV Vaccines Aged Out No longer eligi ble based on patient's age to complete this topic Hepatitis A Vaccines Aged Out No long er eligible based on patient's age to complete this topic IPV Vaccines Aged Out No longer eligi ble based on patient's age to complete this topic Meningococcal B Vaccine Aged Out No l onger eligible based on patient's age to complete this topic Meningococcal Vaccine Aged Out No bobo nadia eligible based on patient's age to complete this topic RSV under 20 months Aged Out No longe r eligible based on patient's age to complete this topic Rotavirus Vaccines Aged Out No longer eligible based on patient's age to complete this topic Procedures Procedure Name Priority Date/Time Associated Diagnosis Comments MAGNESIUM Routine 03/10/2025 4:41 PM EST BASIC METABOLIC PANEL Routine 03/10/2025 4:41 PM EST HEPATIC FUNCTION PANEL Routine 4:41 PM EST XR CHEST 1 VIEW Routine 03/10/2025 3:26 PM EST CBC WITH AUTO DIFFERENTIAL Routine 03/10/2025 2:52 PM EST HOLD LT BLUE - POSSIBLE COAG Routine 03/10/2025 2:52 PM EST SARS COV2/INFLUENZA A/B AND RSV RNA QL NAAT Routine 03/10/2025 2:52 PM EST BI MAMMOGRAM SCREENING TOMOSYNTHESIS BILATERAL Routine 10/03/2023 3:40 PM EDT Encounter for screening mammogram for malignant neoplasm of breast COMPREHENSIVE ORAL EVALUATION - NEW OR ESTABLISHED PATIENT Routine 07/19/2020 12:00 AM EDT HM COLONOSCOPY Routine 07/10/2020 ZZZ HISTORICAL HPV DNA, HIGH RISK, CERVICAL Routine 12/10/2019 2:46 PM EDT THINPREP IMAGING SYSTEM PAP Routine 12/10/2019 2:46 PM EDT HIV 1/2 ANTIGEN/ANTIBODY, FOURTH GENERATION W/RFL Routine 11/26/2019 9:17 AM EDT LIPID PANEL, STANDARD Routine 11/26/2019 9:17 AM EDT from Last 3 Months or Most Recently Relevant to Health Maintenance Results * (ABNORMAL) Magnesium (03/10/2025 4:41 PM EST) Magnesium 3.0(H) 1.6 - 2.6 mg/dL [facility] 03/10/2025 4:41 PM EST 03/10/2025 4:44 PM EST us Generic External Data Provider LAB BLOOD ORDERAB LES Final Result Performing Organization Address [facility]/ZIP Co de Phone Number [facility] [address] [place] [phone] * Hepatic Function Panel (03/10/2025 4:41 PM EST) Bilirubin, Total 1.0 0.0 - 1.0 mg/dL [facility] Bilirubin, Direct 0.3 0.0 - 0.5 mg/dL [facility] Aspartate Amino Transferase 18 5 - 31 U/L [facility] Alanine Aminotransferase 12 0 - 31 U/L [facility] Total Protein 7.1 6.5 - 8.0 g/dL [facility] Albumin Level 4.4 3.5 - 5.0 g/dL [facility] Alkaline Phosphatase 97 39 - 117 U/L [facility] 03/10/2025 4:41 PM EST 03/10/2025 4:44 PM EST us Generic External Data Provider LAB BLOOD ORDERAB LES Final Result Performing Organization Address City/[facility]/ZIP Co de Phone Number [facility] [address] [place] [address] [phone] * (ABNORMAL) Basic Metabolic Panel (03/10/2025 4:41 PM EST) Sodium 140 135 - 145 mmol/L [facility] Potassium 3.3 3.3 - 5.1 mmol/L [facility] Chloride 108 96 - 108 mmol/L [facility] Carbon Dioxide 21(L) 22 - 29 mmol/L [facility] Anion Gap 14 12 - 20 [facility] Urea Nitrogen (BUN) 6(L) 9 - 16 mg/dL [facility] Creatinine, Serum 0.72 0.5 - 1.4 mg/dL [facility] Creatinine Clr Calc Pharmacy 76.6 [facility] Comment:Provided height and weight: 165.1 cm,55 kg.eGFR (calculated from the MDRD study equation) and eCrCl(calculated from the Cockcroft-Gault equation) are based ondifferent parameters and may not yield comparable results.If eCrCl result is absurd, please check patient'sheight/weight. Estimated Glomerular Filt Rate >60 [facility] Comment:Chronic Kidney Disea se: Estimated GFR < 60 mL/min/1.73j8Ayocrr Kidney Disease: Estimated GFR < 15 mL/min/1.73m2 Glucose 111 60 - 115 mg/dL [facility] Calcium 9.6 8.4 - 10.2 mg/dL [facility] 03/10/2025 4:41 PM EST 03/10/2025 4:44 PM EST us Generic External Data Provider LAB BLOOD ORDERAB LES Final Result [facility] [address] [place] [phone] * XR Chest 1 View (03/10/2025 3:26 PM EST) Anatomical Region Laterality Modality Chest Radiographic Catherine ging 03/10/2025 3:26 PM EST Narrative 03/10/2025 3:39 PM EST [address] [address] XRay Report Signed Patient: Silva Thurman MR#: [id number] : 1970 Acct:[id number] Age/Sex: 54 / F ADM Date: 03/10/25 Loc: HO.ED Attending Dr: Ordering Physician: Hallie Gonzalez Date of Service: 03/10/25 Procedure(s): XR chest 1V Accession Number(s): [id number] cc: Em Gil INFORMATION DIRECTOR; Hallie Gonzalez Reason for Exam: sob EXAMINATION: XR CHEST 1 VIEW HISTORY: sob COMPARISON: Comparison is made with the prior examination dated 05/16/2018. FINDINGS: A single AP portable view of the chest performed at 3:26 PM is submitted. There is patchy airspace opacity at the right lung base, consistent with pneumonia. The left lung is clear. There is no pleural effusion, pneumothorax, or pulmonary vascular congestion. The heart is normal in size. The bones are intact. XR/XR chest 1V IMPRESSION: Right basilar pneumonia. Follow-up is recommended to document resolution. Electronically signed by: Simon Vasquez MD 03/10/2025 03:36 PM EST Dictated By: Simon Vasquez MD Signed By: <Electronically signed by Simon Vasquez MD in OV> 03/10/25 1536 DD/ 1526 TD/TT: 03/10/25 1529 Acquisition Professional: Procedure Note Donotuseinterpreter, Image - 03/10/2025 [place] [address] XRay Report Signed Patient: Silva ThurmanMR#: [id number] : 1970Acct:[id number] Age/Sex: 54 / FADM Date: 03/10/25 Loc: .ED Attending Dr: Ordering Physician: Hallie Gonzalez Date of Service: 03/10/25 Procedure(s): XR chest 1V Accession Number(s): [id number] cc: Em Gil NP; Hallie Gonzalez Reason for Exam: sob EXAMINATION: XR CHEST 1 VIEW HISTORY: sob COMPARISON: Comparison is made with the prior examination dated 05/16/2018. FINDINGS: A single AP portable view of the chest performed at 3:26 PM is submitted. There is patchy airspace opacity at the right lung base, consistent with pneumonia. The left lung is clear. There is no pleural effusion, pneumothorax, or pulmonary vascular congestion. The heart is normal in size. The bones are intact. XR/XR chest 1V IMPRESSION: Right basilar pneumonia. Follow-up is recommended to document resolution. Electronically signed by: Simon Vasquez MD 03/10/2025 03:36 PM EST RP Dictated By: Simon Vasquez MD Signed By: <Electronically signed by Simon Vasquez MD in OV> 03/10/25 1536 DD/ 1526 TD/TT: 03/10/25 1529 Acquisition Professional: [facility] External Provider IMG XR PROCEDURES Final Result * HOLD LT BLUE - POSSIBLE COAG (03/10/2025 2:52 PM EST) Hold Lt Blue - Possible Coag SEE NOTE [facility] Comment:Specimen will be hel d untested for 4 hours. Call Hematologyif testing is desired. 03/10/2025 2:52 PM EST 03/10/2025 3:00 PM EST Generic External Data Provider LAB BLOOD ORDERAB LES Final Result [facility] [address] [place] [phone] * SARS-CoV-2 RNA, Influenza A/B, and RSV RNA, Ql NAAT (03/10/2025 2:52 PM EST) Influenza A PCR NEGATIVE Negative [facility] Influenza B PCR NEGATIVE Negative [facility] Resp Syncy Virus RNA Qual PCR NEGATIVE Negative [facility] SARS COV2 PCR NEGATIVE Negative [facility] Comment:All test results mus t be correlated with clinical findings.Negative results do not preclude SARS-CoV2, influenza Avirus, influenza B virus and/or RSV infectionand should not be used as the sole basis for treatment orother patient management decisions. Negative results must becombined with clinical observations, patient history, andepidemiological information.This test has not been evaluated for monitoring treatment ofinfection.This test has been authorized by the FDA under an EmergencyUse Authorization (EUA) for use by authorized laboratories.Testing performed on the Day[employer] GeneXpert utilizingreal-time RT-PCR.All SARS CoV2 and positive influenza A/B results arereported to [facility]. 03/10/2025 2:52 PM EST 03/10/2025 3:42 PM EST us Generic External Data Provider LAB MICROBIOLOGY - GENERAL ORDERABLES Final Result [facility] [address] [place] [phone] * (ABNORMAL) CBC auto differential (03/10/2025 2:52 PM EST) White Blood Count 7.0 4.8 - 10.8 X10*3/uL [facility] Red Blood Count 4.78 4.20 - 5.50 X10*6/uL [facility] Hemoglobin 15.5 12.0 - 16.0 g/dl [facility] Hematocrit 44.9 37.0 - 47.0 % [facility] Mean Corpuscular Volume 93.9 80.0 - 98.0 fL [facility] Mean Corpuscular Hemoglobin 32.4 27.0 - 33.0 pg [facility] Mean Corpuscular HGB Conc 34.5 31.0 - 35.0 g/dl [facility] Red Cell Distribution Width 13.2 11.0 - 16.0 % [facility] Platelet Count 293 160 - 400 X10*3/uL [facility] Mean Platelet Volume 9.2(L) 9.4 - 12.3 fL [facility] Neutrophils Percent Auto 56.4 45 - 73 % [facility] Imm Gran Pct Auto 0.1 0.0 - 0.4 % [facility] Lymphocytes Percent Auto 24.3 20 - 40 % [facility] Monocytes Percent Auto 5.3 2 - 11 % [facility] Eosinophils Percent Auto 12.9(H) 0 - 4 % [facility] Basophils Percent Auto 1.0 0 - 2 % [facility] NRBC Pct Auto 0.0 0.0 - 0.2 /100WBC [facility] Neutrophils Absolute Auto 3.9 2.0 - 8.3 x10*3/uL [facility] Imm Gran Abs Auto 0.01 0.00 - 0.03 X10*3/uL [facility] Lymphocytes Absolute Auto 1.7 1.2 - 4.9 X10*3/uL [facility] Monocytes Absolute Auto 0.4 0.1 - 1.2 X10*3/uL [facility] Eosinophils Absolute Auto 0.9(H) 0.0 - 0.4 X10*3/uL [facility] Basophils Absolute Auto 0.1 0.0 - 0.2 X10*3/uL [facility] NRBC Abs Auto 0.000 0.0 - 0.012 X10*3/uL [facility] 03/10/2025 2:52 PM EST 03/10/2025 2:53 PM EST us Generic External Data Provider LAB BLOOD ORDERAB LES Final Result Performing Organization Address City/State/[facility] Co de Phone Number [facility] [address] [place] [phone] * BI Mammogram Screening Tomosynthesis Bilateral (10/03/2023 3:40 PM EDT) Anatomical Region Laterality Modality Breast Bilateral Mammography 10/03/2023 3:40 PM EDT Narrative 11/02/2023 9:26 AM EDT [facility] [address] [place] [address] Mammography Report Signed Patient: Silva Thurman MR#: [id number] : 1970 Acct:[id number] Age/Sex: 53 / F ADM Date: 10/03/23 Loc: MAMMO Attending Dr: Em Gil INFORMATION DIRECTOR Ordering Physician: Em Gil INFORMATION DIRECTOR Results: 1Negati ve Date of Service: 10/03/23 Follow Up: 1 Year From [facility] Mammogram Procedure(s): MM tomosynthesis screening BI Accession Number(s): [id number] cc: Em Gil INFORMATION DIRECTOR EXAMINATION: MM SCREENING DIGITAL BREAST TOMOSYNTHESIS, BILATERAL CLINICAL INFORMATION: Screening. Asymptomatic. COMPARISON: Mammography: This study is compared with prior exams dating back to 2020. TECHNIQUE: Digital breast tomosynthesis is performed in both the craniocaudal and mediolateral oblique views along with computer-aided detection (CAD). Synthesized 2D images are generated from the tomosynthesis. FINDINGS: There are scattered areas of fibroglandular density (ACR BI-RADS breast composition Category b). There are no significant masses, abnormal calcifications, or other abnormalities. MM/MM tomosynthesis screening BI IMPRESSION: No mammographic evidence of malignancy. ASSESSMENT: BI-RADS BI-RADS 1 - Negative RECOMMENDATION: Routine annual mammography screening. 1 year F/U This examination should not preclude the clinical evaluation of a suspicious palpable abnormality. This patient's information was entered into a reminder system with a target due date for their next mammogram. Dictated By: Sabi Rodriguez MD Signed By: <Electronically signed by Sabi Rodriguez MD in OV> 11/02/23 0923 DD/ 1540 TD/TT: Acquisition Professional: Procedure Note Donotuseinterpreter, Image - 11/02/2023 [place] [facility] [address] [place], [place] [address] Mammography Report Signed Patient: Tari Thurman#: [id number] : 1970Acct:[id number] Age/Sex: 53 / FADM Date: 10/03/23 Loc: SACHA Attending Dr: Em Gil INFORMATION DIRECTOR Ordering Physician: Em Gil NPResults: 1Negati ve Date of Service: 10/03/23Follow Up: 1 Year From [facility] Procedure(s): MM tomosynthesis screening BI Accession Number(s): [id number] cc: Em Gil NP EXAMINATION: MM SCREENING DIGITAL BREAST TOMOSYNTHESIS, BILATERAL CLINICAL INFORMATION: Screening. Asymptomatic. COMPARISON: Mammography: This study is compared with prior exams dating back to 2020. TECHNIQUE: Digital breast tomosynthesis is performed in both the craniocaudal and mediolateral oblique views along with computer-aided detection (CAD). Synthesized 2D images are generated from the tomosynthesis. FINDINGS: There are scattered areas of fibroglandular density (ACR BI-RADS breast composition Category b). There are no significant masses, abnormal calcifications, or other abnormalities. MM/MM tomosynthesis screening BI IMPRESSION: No mammographic evidence of malignancy. ASSESSMENT: BI-RADS BI-RADS 1 - Negative RECOMMENDATION: Routine annual mammography screening. 1 year F/U This examination should not preclude the clinical evaluation of a suspicious palpable abnormality. This patient's information was entered into a reminder system with a target due date for their next mammogram. Dictated By: Sabi Rodriguez MD Signed By: <Electronically signed by Sabi Rodriguez MD in OV> 11/02/23 0923 DD/ 1540 TD/TT: Acquisition Professional: Em Gil NP IMG BI PROCEDURES Edited Result - Final * Hm Colonoscopy (07/10/2020) Colonoscopy Normal Normal Historical Provider HEALTH MAINTENANCE Final Result * HPV DNA, HIGH RISK, CERVICAL (12/10/2019 2:46 PM EDT) HPV DNA, HIGH RISK, CERVICAL Not Detected NOT DETECTED [facility] Comment: Not Detected High Risk HPV types (16,18,31,33,35,39,45,51,52, 56,58,59,66,68) were not detected. Other HPV types which cause anogenital lesions may be present. The significance of the other types of HPV in malignant processes has not been established. Methodology: Real Time PCR 12/10/2019 2:46 PM EDT Shannan Ely MD HISTORICAL/NON ORDERABLE LAB S Final Result Performing Organization Address [facility] Co de Phone Number [facility] [address] * THINPREP TIS PAP (12/10/2019 2:46 PM EDT) Clinical Information: SEE COMMENT [facility] Comment:None given COMMENT SEE COMMENT [facility] Comment: EXPLANATORY NOTE: The Pap is a screening test for cervical cancer. It is not a diagnostic test and is subject to false negative and false positive results. It is most reliable when a satisfactory sample, regularly obtained, is submitted with relevant clinical findings and history, and when the Pap result is evaluated along with historic and current clinical information. COMMENT: SEE COMMENT [facility] Comment: This Pap test has been evaluated with computer assisted technology. Rag Sorter: SEE COMMENT [facility] Comment: JH, CT(ASCP) CT screening location: [place] [address] Interpretation/Resu lt: SEE COMMENT [facility] Comment:Negative for intraep ithelial lesion or malignancy. LMP: SEE COMMENT [facility] Comment:NONE GIVEN Prev. BX: NONE GIVEN [facility] Prev. PAP: SEE COMMENT [facility] Comment:NONE GIVEN SOURCE: SEE COMMENT [facility] Comment:Cervix Statement Of Adequacy: SEE COMMENT [facility] Comment: Satisfactory for evaluation. Endocervical/transformation zone component absent. Age and/or menstrual status not provided 12/10/2019 2:46 PM EDT Shannan Ely MD LAB PATHOLOGY ORDERABLES Fin al Result Performing Organization Address [facility]/ZIP Co de Phone Number [facility] [address] [place] [address], * HIV 1/2 ANTIGEN/ANTIBODY,FOURTH GENERATION W/RFL (11/26/2019 9:17 AM EDT) HIV-1/2 ANTIGEN AND ANTIBODIES, 4TH GENERATION W/ REFLEX NON-REACT TEREZA NON-REACT TEREZA [facility] Comment: HIV-1 antigen and HIV-1/HIV-2 antibodies were not detected. There is no laboratory evidence of HIV infection. PLEASE NOTE: This information has been disclosed to you from records whose confidentiality may be protected by state law. If your state requires such protection, then the state law prohibits you from making any further disclosure of the information without the specific written consent of the person to whom it pertains, or as otherwise permitted by law. A general authorization for the release of medical or other information is NOT sufficient for this purpose. For additional information please refer to http://[employer].[email or web address]/faq/GZS910 (This link is being provided for informational/ educational purposes only.) The performance of this assay has not been clinically validated in patients less than 2 years old. 11/26/2019 9:17 AM EDT Shannan Ely MD LAB BLOOD ORDERABLES Final R esult [facility] [address] * (ABNORMAL) LIPID PANEL, STANDARD (11/26/2019 9:17 AM EDT) Triglycerides 94 <150 mg/dL [facility] Cholesterol, Total 193 <200 mg/dL [facility] HDL Cholesterol 51 > OR = 50 mg/dL [facility] LDL Cholesterol 122(H) mg/dL (calc) [facility] Comment: Reference range: <100 Desirable range <100 mg/dL for primary prevention; <70 mg/dL for patients with CHD or diabetic patients with > or = 2 CHD risk factors. LDL-C is now calculated using the Galindo-Sowmya calculation, which is a validated novel method providing better accuracy than the Friedewald equation in the estimation of LDL-C. Galindo ADAMS et al. MARCIA. 2013;310(19): 4283-3548 (http://education.MiTio.LogMeIn/faq/ACC551) LDL Cholesterol 122(H) mg/dL (calc) [facility] Comment: Reference range: <100 Desirable range <100 mg/dL for primary prevention; <70 mg/dL for patients with CHD or diabetic patients with > or = 2 CHD risk factors. LDL-C is now calculated using the Galindo-Deng calculation, which is a validated novel method providing better accuracy than the Friedewald equation in the estimation of LDL-C. Galindo ADAMS et al. MARCIA. 2013;310(19): 1391-6089 (http://education.MiTio.LogMeIn/faq/GLS359) Chol/HDLC Ratio 3.8 <5.0 (calc) [facility] HDL Cholesterol 51 > OR = 50 mg/dL [facility] Cholesterol, Total 193 <200 mg/dL [facility] Chol/HDLC Ratio 3.8 <5.0 (calc) [facility] Non-HDL Cholesterol 142(H) <130 mg/dL (calc) [facility] Comment: For patients with diabetes plus 1 major ASCVD risk factor, treating to a non-HDL-C goal of <100 mg/dL (LDL-C of <70 mg/dL) is considered a therapeutic option. Non-HDL Cholesterol 142(H) <130 mg/dL (calc) [facility] Comment: For patients with diabetes plus 1 major ASCVD risk factor, treating to a non-HDL-C goal of <100 mg/dL (LDL-C of <70 mg/dL) is considered a therapeutic option. HDL Cholesterol 51 > OR = 50 mg/dL [facility] Cholesterol, Total 193 <200 mg/dL [facility] Triglycerides 94 <150 mg/dL [facility] Chol/HDLC Ratio 3.8 <5.0 (calc) [facility] HDL Cholesterol 51 > OR = 50 mg/dL [facility] Cholesterol, Total 193 <200 mg/dL [facility] LDL Cholesterol 122(H) mg/dL (calc) [facility] Comment: Reference range: <100 Desirable range <100 mg/dL for primary prevention; <70 mg/dL for patients with CHD or diabetic patients with > or = 2 CHD risk factors. LDL-C is now calculated using the Galindo-Deng calculation, which is a validated novel method providing better accuracy than the Friedewald equation in the estimation of LDL-C. Galindo ADAMS et al. MARCIA. 2013;310(19): 5278-4507 (http://education.MiTio.LogMeIn/faq/LVL630) Triglycerides 94 <150 mg/dL [facility] Non-HDL Cholesterol 142(H) <130 mg/dL (calc) [facility] Comment: For patients with diabetes plus 1 major ASCVD risk factor, treating to a non-HDL-C goal of <100 mg/dL (LDL-C of <70 mg/dL) is considered a therapeutic option. Chol/HDLC Ratio 3.8 <5.0 (calc) [facility] Non-HDL Cholesterol 142(H) <130 mg/dL (calc) [facility] Comment: For patients with diabetes plus 1 major ASCVD risk factor, treating to a non-HDL-C goal of <100 mg/dL (LDL-C of <70 mg/dL) is considered a therapeutic option. Triglycerides 94 <150 mg/dL [facility] LDL Cholesterol 122(H) mg/dL (calc) [facility] Comment: Reference range: <100 Desirable range <100 mg/dL for primary prevention; <70 mg/dL for patients with CHD or diabetic patients with > or = 2 CHD risk factors. LDL-C is now calculated using the Satish calculation, which is a validated novel method providing better accuracy than the Friedewald equation in the estimation of LDL-C. Galindo SS et al. MARCIA. 2013;310(19): 3293-3439 (http://education.MiTio.com/faq/TJZ902) 11/26/2019 9:17 AM EDT us Shannan Ely MD LAB BLOOD ORDERABLES Final R esult [facility] [address] from Last 3 Months or Most Recently Relevant to Health Maintenance Insurance [facility] 2 DENTAL - HSN PARTIAL (MEDICAID) Care Teams Web Marketing Coordinator Relationship Specialty Start Date End Date Em Gil NP [address] [place] [address] PCP - General Family Medicine 08/06/23
--- OUTSIDE RECORDS SUMMARY | 2025-03-11 03:46 | XMS_ITS | Encounter Summary ---
Author Organization [employer] Address [address] [facility] 7[address] [place] [address] Care Team Providers Care Human Resource Assistant Name Role Phone Em Gil NP Primary Care Provider [phone] Reason for Visit * Reason Comments Med Refill Encounter Details Date Type Department Care Team ([facility] st Contact Info) Description 01/01/2025 Refill [facility] [address], [place] [phone] Em Gil NP [address] [place], [place] [phone] Moderate persistent asthma with acute exacerbation Social History Tobacco Use Types Packs/Day Years Used Date Smoking Tobacco: Every Day Cigarettes Passive Smoke Exposure: Past Smokeless Tobacco: Never Alcohol Use Standard Drinks/Week Comments Yes 0 [...] Orientation Straight 02/19/2022 10 :21 AM EDT documented as of this encounter Plan of Treatment Not on file documented as of this encounter Visit Diagnoses Diagnosis Moderate persistent asthma with acute exacerbation documented in this encounter Additional Health Concerns Assessment Noted Time PHQ-9 Depression Total Score: 0 09/13/19 3:02 PM EDT documented as of this encounter Care Teams Human Resource Assistant Relationship Specialty Start Date End Date Em Gil NP [address] [place] [phone] PCP - General Family Medicine 08/06/23 documented as of this encounter
--- OUTSIDE RECORDS SUMMARY | 2025-03-11 03:46 | XMS_ITS | Encounter Summary ---
Author Organization [employer] Address [address] [facility] [address] [place] [address] Care Team Providers Care Test Equipment Mechanic Name Role Phone Em Gil TREMAINE Primary Care Provider [phone] Encounter Details Date Type Department Care Team ([facility] Contact Info) Description 03/10/2025 Orders Only GENERIC EXTERNAL DATA DEPARTMENT Provider, Generic External Data Social History Tobacco Use Types Packs/Day Years [...] is your housing situation today? I have haydenjaguar silva 09/13/[address] you [...] on file documented as of this encounter Procedures Procedure Name Priority Date/Time Associated Diagnosis Comments MAGNESIUM Routine 03/10/2025 4:41 PM EST HEPATIC FUNCTION PANEL Routine 03/10/2025 4:41 PM EST BASIC METABOLIC PANEL Routine 03/10/2025 4:41 PM EST XR CHEST 1 VIEW Routine 03/10/2025 3:26 PM EST HOLD LT BLUE - POSSIBLE COAG Routine 03/10/2025 2:52 PM EST SARS COV2/INFLUENZA A/B AND RSV RNA QL NAAT Routine 03/10/2025 2:52 PM EST CBC WITH AUTO DIFFERENTIAL Routine 03/10/2025 2:52 PM EST documented in this encounter Results * (ABNORMAL) Magnesium (03/10/2025 4:41 PM EST) Magnesium 3.0(H) 1.6 - 2.6 mg/dL [facility] 03/10/2025 4:41 PM EST 03/10/2025 4:44 PM EST us Generic External Data Provider LAB BLOOD ORDERAB LES Final Result [facility] [address] [place] [phone] * (ABNORMAL) Basic Metabolic Panel (03/10/2025 4:41 PM EST) Sodium 140 135 - 145 mmol/L [facility] Potassium 3.3 3.3 - 5.1 mmol/L [facility] Chloride 108 96 - 108 mmol/L [facility] Carbon Dioxide 21(L) 22 - 29 mmol/L [facility] Anion Gap 14 12 - 20 [facility] Urea Nitrogen (BUN) 6(L) 9 - 16 mg/dL [facility] Creatinine, Serum 0.72 0.5 - 1.4 mg/dL [facility] Creatinine Clr Calc Pharmacy 76.6 [facility] Comment:Provided height and weight: 165.1 cm,55 kg.eGFR (calculated from the MDRD study equation) and eCrCl(calculated from the Cockcroft-Gault equation) are based ondifferent parameters and may not yield comparable results.If eCrCl result is absurd, please check patient'sheight/weight. Estimated Glomerular Filt Rate >60 [facility] Comment:Chronic Kidney Disea se: Estimated GFR < 60 mL/min/1.10l1Zrbctr Kidney Disease: Estimated GFR < 15 mL/min/1.73m2 Glucose 111 60 - 115 mg/dL [facility] Calcium 9.6 8.4 - 10.2 mg/dL [facility] 03/10/2025 4:41 PM EST 03/10/2025 4:44 PM EST us Generic External Data Provider LAB BLOOD ORDERAB LES Final Result [facility] [address] [place] [phone] * Hepatic Function Panel (03/10/2025 4:41 PM EST) [facility] Bilirubin, Total 1.0 0.0 - 1.0 mg/dL [facility] Bilirubin, Direct 0.3 0.0 - 0.5 mg/dL [facility] Aspartate Amino Transferase 18 5 - 31 U/L [facility] Alanine Aminotransferase 12 0 - 31 U/L [facility] Total Protein 7.1 6.5 - 8.0 g/dL [facility] Albumin Level 4.4 3.5 - 5.0 g/dL [facility] Alkaline Phosphatase 97 39 - 117 U/L [facility] 03/10/2025 4:41 PM EST 03/10/2025 4:44 PM EST us Generic External Data Provider LAB BLOOD ORDERAB LES Final Result Performing Organization Address City/State/[facility] Co de Phone Number [facility] [address] [place] [phone] * XR Chest 1 View (03/10/2025 3:26 PM EST) Anatomical Region Laterality Modality Chest Radiographic Catherine ging 03/10/2025 3:26 PM EST Narrative 03/10/2025 3:39 PM EST [address] [address] XRay Report Signed Patient: Silva Thurman MR#: [id number] : 1970 Acct:[id number] Age/Sex: 54 / F ADM Date: 03/10/25 Loc: HO.ED Attending Dr: Ordering Physician: Hallie Gonzalez Date of Service: 03/10/25 Procedure(s): XR chest 1V Accession Number(s): [id number] cc: Em Gil DIRECTOR OF PLAYER PERSONNEL; Hallie Gonzalez Reason for Exam: sob EXAMINATION: [...] OV> 03/10/25 1536 DD/ 1526 TD/TT: 03/10/25 152 Managed Services Sales Consultant: Procedure Note Donotuseinterpreter, Image - 03/10/2025 [place] [address] XRay Report Signed Patient: Tari Thurman#: [id number] : 1970Acct:[id number] Age/Sex: 54 / FADM Date: 03/10/25 Loc: .ED Attending Dr: Ordering Physician: Hallie Gonzalez Date of Service: 03/10/25 Procedure(s): XR chest 1V Accession Number(s): [id number] cc: Em Gil DIRECTOR OF PLAYER PERSONNEL; Hallie Gonzalez Reason for Exam: sob EXAMINATION: [...] 03/10/25 1536 DD/ 1526 TD/TT: 03/10/25 1529 Managed Services Sales Consultant: [facility] External Provider IMG XR PROCEDURES Final Result * SARS-CoV-2 RNA, Influenza A/B, and RSV RNA, Ql NAAT (03/10/2025 2:52 PM EST) Pathologist [facility] Influenza A PCR NEGATIVE Negative [facility] Influenza B PCR NEGATIVE Negative [facility] Resp Syncy Virus RNA Qual PCR NEGATIVE Negative [facility] SARS COV2 PCR NEGATIVE Negative [facility] Comment:All test results mus t [...] use by authorized laboratories.Testing performed on the redIT GeneXpert utilizingreal-time RT-PCR.All SARS CoV2 and positive influenza A/B results arereported to [facility]. 03/10/2025 2:52 PM EST 03/10/2025 3:42 PM EST us Generic External Data Provider LAB MICROBIOLOGY - GENERAL ORDERABLES Final Result [facility] [address] [place] [phone] * (ABNORMAL) CBC auto differential (03/10/2025 2:52 PM EST) Pathologist [facility] White Blood Count 7.0 4.8 - 10.8 X10*3/uL [facility] Red Blood Count 4.78 4.20 - 5.50 X10*6/uL [facility] Hemoglobin 15.5 12.0 - 16.0 g/dl [facility] Hematocrit 44.9 37.0 - 47.0 % [facility] Mean Corpuscular Volume 93.9 80.0 - 98.0 fL [facility] Mean Corpuscular Hemoglobin 32.4 27.0 - 33.0 pg [facility] Mean Corpuscular HGB Conc 34.5 31.0 - 35.0 g/dl [facility] Red Cell Distribution Width 13.2 11.0 - 16.0 % [facility] Platelet Count 293 160 - 400 X10*3/uL [facility] Mean Platelet Volume 9.2(L) 9.4 - 12.3 fL [facility] Neutrophils Percent Auto 56.4 45 - 73 % [facility] Imm Gran Pct Auto 0.1 0.0 - 0.4 % [facility] Lymphocytes Percent Auto 24.3 20 - 40 % [facility] Monocytes Percent Auto 5.3 2 - 11 % [facility] Eosinophils Percent Auto 12.9(H) 0 - 4 % [facility] Basophils Percent Auto 1.0 0 - 2 % [facility] NRBC Pct Auto 0.0 0.0 - 0.2 /100WBC [facility] Neutrophils Absolute Auto 3.9 2.0 - 8.3 x10*3/uL [facility] Imm Gran Abs Auto 0.01 0.00 - 0.03 X10*3/uL [facility] Lymphocytes Absolute Auto 1.7 1.2 - 4.9 X10*3/uL [facility] Monocytes Absolute Auto 0.4 0.1 - 1.2 X10*3/uL [facility] Eosinophils Absolute Auto 0.9(H) 0.0 - 0.4 X10*3/uL [facility] Basophils Absolute Auto 0.1 0.0 - 0.2 X10*3/uL [facility] NRBC Abs Auto 0.000 0.0 - 0.012 X10*3/uL [facility] 03/10/2025 2:52 PM EST 03/10/2025 2:53 PM EST us Generic External Data Provider LAB BLOOD ORDERAB LES Final Result [facility] [address] [place] [phone] * HOLD LT BLUE - POSSIBLE COAG (03/10/2025 2:52 PM EST) Hold Lt Blue - Possible Coag SEE NOTE [facility] Comment:Specimen will be hel d untested for 4 hours. Call Hematologyif testing is desired. 03/10/2025 2:52 PM EST 03/10/2025 3:00 PM EST us Generic External Data Provider LAB BLOOD ORDERAB LES Final Result [facility] [address] [place] [address] [phone] documented in this encounter Visit Diagnoses Not on filedocumented in this encounter Additional Health Concerns Assessment Noted Time PHQ-9 Depression Total Score: 0 09/13/19 3:02 PM EDT documented as of this encounter Care Teams Test Equipment Mechanic Relationship Specialty Start Date End Date Em Gil NP [address] [place] [address] PCP - General Family Medicine 08/06/23 documented as of this encounter
[2025-03-11 07:01] LABS: MANUAL DIFF FLAG NO
[2025-03-11 07:11] LABS: Hematocrit 40.3 % (37.0-47.0); Hemoglobin 14.2 g/dl (12.0-16.0); Imm Gran Abs Auto 0.03 X10*3/uL (0.00-0.03); Imm Gran Pct Auto 0.4 % (0.0-0.4); Lymphocytes Absolute Auto 0.8 X10*3/uL (1.2-4.9); Mean Corpuscular HGB Conc 35.2 g/dl (31.0-35.0); Mean Corpuscular Hemoglobin 32.7 pg (27.0-33.0); Mean Corpuscular Volume 92.9 fL (80.0-98.0); NRBC Abs Auto 0.000 X10*3/uL (0.0-0.012); NRBC Pct Auto 0.0 /100WBC (0.0-0.2); Platelet Count 282 X10*3/uL (160-400); Red Blood Count 4.34 X10*6/uL (4.20-5.50); White Blood Count 6.7 X10*3/uL (4.8-10.8)
[2025-03-11 07:40] LABS: Alanine Aminotransferase 13 U/L (0-31); Albumin Level 4.4 g/dL (3.5-5.0); Alkaline Phosphatase 100 U/L (39-117); Aspartate Amino Transferase 19 U/L (5-31); Blood Urea Nitrogen 11 mg/dL (9-16); Calcium 9.7 mg/dL (8.4-10.2); Creatinine Clr Calc Pharmacy 84.2; Estimated Glomerular Filt Rate > 60; Total Protein 7.1 g/dL (6.5-8.0)
[2025-03-11] MEDS: Albuterol/Iprat 2.5/0.5MG 3 ML AMPUL.NEB INHALE ×4 (07:50→19:55)
[2025-03-11 08:29] LABS: Anion Gap 13 (12-20); Carbon Dioxide 22 mmol/L (22-29); Chloride 109 mmol/L (96-108); Potassium 4.2 mmol/L (3.3-5.1); Sodium 140 mmol/L (135-145)
--- NOTE | 2025-03-11 08:35 | MHC.CM.PN ---
CM met with Patient at bedside. Patient lives in an apartment with her Daughter, who will transport at dc. Patient required no services nor DME TREASURY SPECIALIST and home self care is her goal. CM has initiated and will follow for dc planning. PCP/CANDY DIPPER is Em Gil.
[2025-03-11] MEDS: 0.9 % Sodium Chloride Flush 3 ML SYRINGE IVFLUSH ×3 (09:29→21:31)
--- NOTE | 2025-03-11 09:44 | HO.PM.IMPN ---
Subjective Subjective Date of Service: 03/11/25 Interval History: still very sob Physical Exam Exam: Exam: General: AO X 3, ill appearing, dyspneic Resp: poor air movement and wheezing bilateral, mild accessory muscles used CVS: S1,S2,RRR GI: soft, non tender, non distended Neuro: motor grossly intact, alert Psych: appropriate affect, appropriate insight Vital Signs: Vital Signs: Last Vital Signs Temp 98.5 F 03/11/25 07:29 Pulse 90 03/11/25 07:54 Resp 18 03/11/25 07:54 BP 127/72 03/11/25 07:29 Pulse Ox 92 03/11/25 07:29 O2 Del Method Nasal Cannula 03/11/25 07:29 O2 Flow Rate 2 03/11/25 07:29 BMI result Body Mass Index 20.6 Objective Data Active Medications Acetaminophen (Acetaminophen 325 Mg Tablet) 650 mg PO Q6H PRN PRN Reason: Pain, Mild 1-3,fever,headache Albuterol/Ipratropium (Albuterol/Iprat 2.5/0.5mg 3 Ml Ampul.Neb) 3 ml INHALE Q4H PRN PRN Reason: Shortness of Breath/Wheezing Albuterol/Ipratropium (Albuterol/Iprat 2.5/0.5mg 3 Ml Ampul.Neb) 3 ml INHALE RQ6H WHILE AWAKE [facility] Last Admin: 03/11/25 07:50 Dose: 3 ml Documented By: DEIDRA Amlodipine Besylate (Amlodipine Besylate 5 Mg Tablet) 5 mg PO DAILY [facility]; Protocol Last Admin: 03/11/25 09:30 Dose: 5 mg Documented By: LYNNE Azithromycin (Azithromycin 500 Mg Tablet) 500 mg PO Q24H [facility] Last Admin: 03/10/25 21:09 Dose: 500 mg Documented By: STEPHANIE Calcium Carbonate (Calcium Carbonate 750 Mg Tab.Chew) 750 mg PO Q4H PRN PRN Reason: Heartburn Enoxaparin Sodium (Enoxaparin Sodium 40 Mg/0.4 Ml Syringe) 40 mg SUBCUT Q24H [facility] Last Admin: 03/10/25 21:09 Dose: 40 mg Documented By: STEPHANIE Magnesium Hydroxide (Milk Of Magnesia 30 Ml Oral.Susp) 30 ml PO DAILY PRN PRN Reason: Constipation Melatonin (Melatonin 3 Mg Tablet) 6 mg PO BEDTIME PRN PRN Reason: Insomnia Methylprednisolone Sodium Succinate (Methylprednisolone Sod Succ 40 Mg/Ml Vial) 40 mg IVPUSH Q12H [facility] Sodium Chloride (0.9 % Sodium Chloride Flush 3 Ml Syringe) 3 ml IVFLUSH QSHIFT MEHUL Last Admin: 03/11/25 09:29 Dose: 3 ml Documented By: LYNNE Labs 03/11/25 06:25 03/11/25 06:25 Labs: Laboratory Results - last 24 hr 03/10/25 03/10/25 03/11/25 14:52 16:41 06:25 MCV 93.9 92.9 MCH 32.4 32.7 MCHC 34.5 35.2 H RDW 13.2 13.0 Plt Count 293 282 MPV 9.2 L 9.5 Immature Gran % (Auto) 0.1 0.4 Neut % (Auto) 56.4 86.3 H Lymph % (Auto) 24.3 12.3 L Jennings % (Auto) 5.3 0.9 L Eos % (Auto) 12.9 H 0.0 Baso % (Auto) 1.0 0.1 Lymph # (Auto) 1.7 0.8 L Jennings # (Auto) 0.4 0.1 Eos # (Auto) 0.9 H 0.0 Baso # (Auto) 0.1 0.0 Abs Immat Gran (auto) 0.01 0.03 Absolute Neuts (auto) 3.9 5.8 Absolute Nucleated RBC 0.000 0.000 Nucleated RBC % (auto) 0.0 0.0 Hold Blue Top SEE NOTE Anion Gap 14 13 Estim Creat Clear Calc 76.6 84.2 Estimated GFR > 60 > 60 Random Glucose 111 121 H Calcium 9.6 9.7 Magnesium 3.0 H Total Bilirubin 1.0 0.6 Direct Bilirubin 0.3 AST 18 19 ALT 12 13 Alkaline Phosphatase 97 100 Total Protein 7.1 7.1 Albumin 4.4 4.4 Influenza Type A (PCR) NEGATIVE Influenza Type B (PCR) NEGATIVE RSV RNA Qual (PCR) NEGATIVE SARS-CoV-2 RNA (RT-PCR) NEGATIVE Assessment and Plan (1) Asthma exacerbation: Status: Acute Plan 54F PMH hypertension, moderate persistent asthma presented with shortness of breaths hypoxia Acute hypoxic respiratory failure due to moderate persistent asthma with acute decompensation Continues to be symptomatic continues to desaturate to high 80s on room air Continue IV Solu-Medrol and DuoNebs Continue azithromycin, add cefuroxime for possible pneumonia Wean oxygen as tolerated Hypertension Amlodipine DVT prophylaxis with Lovenox Full code reason for continued hospitalization: Still hypoxic and short of breath Quality Stroke Does the patient have a stroke diagnosis?: No VTE Prior VTE?: No VTE Risk Level:: Medical - moderate - high VTE Device Contraindication: Treatment Not Indicated VTE Drug Contraindication: N/A - Med Ordered
[2025-03-12] VITALS (10 sets, daily range): BP systolic 120–142; BP diastolic 73–88; PULSE 71–100; RESP 16–92; TEMP 36.1–37.3; O2SAT 88–96
[2025-03-12] MEDS: Albuterol/Iprat 2.5/0.5MG 3 ML AMPUL.NEB INHALE ×3 (07:49→19:48)
[2025-03-12] MEDS: 0.9 % Sodium Chloride Flush 3 ML SYRINGE IVFLUSH ×3 (08:33→21:04)
--- NOTE | 2025-03-12 09:38 | P.PNIM_ITS ---
Subjective Subjective Date of Service: 03/12/25 Interval History: still sob, though reports some subjective improvement despite increased o2 requirements Physical Exam 2 Exam: Exam: General: AO X 3, ill appearing, less dyspneic Resp: improving air movement and wheezing bilateral, no accessory muscles used CVS: S1,S2,RRR GI: soft, non tender, non distended Neuro: motor grossly intact, alert Psych: appropriate affect, appropriate insight Vital Signs: Vital Signs: Last Vital Signs Temp 97.6 F 03/12/25 07:32 Pulse 71 03/12/25 07:50 Resp 18 03/12/25 07:50 BP 140/86 H 03/12/25 07:32 Pulse Ox 92 03/12/25 07:32 O2 Del Method Nasal Cannula 03/12/25 07:32 O2 Flow Rate 4 03/12/25 07:32 BMI result Body Mass Index 20.6 Objective Data Active Medications Acetaminophen (Acetaminophen 325 Mg Tablet) 650 mg PO Q6H PRN PRN Reason: Pain, Mild 1-3,fever,headache Albuterol/Ipratropium (Albuterol/Iprat 2.5/0.5mg 3 Ml Ampul.Neb) 3 ml INHALE Q4H PRN PRN Reason: Shortness of Breath/Wheezing Last Admin: 03/11/25 18:19 Dose: 3 ml Documented By: DEIDRA Albuterol/Ipratropium (Albuterol/Iprat 2.5/0.5mg 3 Ml Ampul.Neb) 3 ml INHALE RQ6H WHILE AWAKE [facility] Last Admin: 03/12/25 07:49 Dose: 3 ml Documented By: DAVID Amlodipine Besylate (Amlodipine Besylate 5 Mg Tablet) 5 mg PO DAILY [facility]; Protocol Last Admin: 03/12/25 08:28 Dose: 5 mg Documented By: LYNNE Azithromycin (Azithromycin 500 Mg Tablet) 500 mg PO Q24H [facility] Last Admin: 03/11/25 21:29 Dose: 500 mg Documented By: MATTIE Benzonatate (Benzonatate 100 Mg Capsule) 100 mg PO TID PRN PRN Reason: Cough Last Admin: 03/12/25 08:27 Dose: 100 mg Documented By: LYNNE Calcium Carbonate (Calcium Carbonate 750 Mg Tab.Chew) 750 mg PO Q4H PRN PRN Reason: Heartburn Cefuroxime Axetil (Cefuroxime Axetil 500 Mg Tablet) 500 mg PO Q12H [facility] Last Admin: 03/12/25 08:28 Dose: 500 mg Documented By: LYNNE Enoxaparin Sodium (Enoxaparin Sodium 40 Mg/0.4 Ml Syringe) 40 mg SUBCUT Q24H [facility] Last Admin: 03/11/25 21:29 Dose: 40 mg Documented By: MATTIE Magnesium Hydroxide (Milk Of Magnesia 30 Ml Oral.Susp) 30 ml PO DAILY PRN PRN Reason: Constipation Melatonin (Melatonin 3 Mg Tablet) 6 mg PO BEDTIME PRN PRN Reason: Insomnia Methylprednisolone Sodium Succinate (Methylprednisolone Sod Succ 40 Mg/Ml Vial) 40 mg IVPUSH Q12H [facility] Last Admin: 03/12/25 08:28 Dose: 40 mg Documented By: LYNNE Sodium Chloride (0.9 % Sodium Chloride Flush 3 Ml Syringe) 3 ml IVFLUSH QSHIFT [facility] Last Admin: 03/12/25 08:33 Dose: 3 ml Documented By: LYNNE Labs 03/11/25 06:25 03/11/25 06:25 Assessment and Plan (1) Asthma exacerbation: Status: Acute Plan 54F PMH hypertension, moderate persistent asthma presented with shortness of breaths hypoxia Acute hypoxic respiratory failure due to moderate persistent asthma with acute decompensation Continues to be symptomatic continues to desaturate to high 80s on room air, now requiring 4L o2 to maintain sat of 92% Continue IV Solu-Medrol and DuoNebs Continue azithromycin, added cefuroxime for possible pneumonia Wean oxygen as tolerated Hypertension Amlodipine DVT prophylaxis with Lovenox Full code reason for continued hospitalization: Still hypoxic and short of breath Quality Stroke Does the patient have a stroke diagnosis?: No VTE Prior VTE?: No VTE Risk Level:: Medical - moderate - high VTE Device Contraindication: Treatment Not Indicated VTE Drug Contraindication: N/A - Med Ordered
--- NOTE | 2025-03-12 11:05 | MHC.CM.PN ---
PER MD ROUNDS, PT NOT MEDICALLY CLEARED, ON 6L O2. DCP: HOME VIA PRIVATE TRANSPORT
[2025-03-12] MEDS: guaiFENesin DM 100/10/5 ML 5 ML SYRUP PO (17:29)
[2025-03-13] VITALS (14 sets, daily range): BP systolic 131–177; BP diastolic 79–97; PULSE 69–112; RESP 18–20; TEMP 36.5–37.5; O2SAT 85–95
--- NOTE | 2025-03-13 00:35 | PC.NURSE ---
Assumed care of this patient ~19:00. Patient with med-surg orders, only on continuous spo2 monitoring while on 5L nc (no o2 at baseline per pt). Spo2 maintained. ROBERTS, resolves with rest. Patient transferred in stable condition with all belongings to med-surg at ~00:30. Report was called to receiving RN @ 00:05.
[2025-03-13 06:36] LABS: Hematocrit 37.2 % (37.0-47.0); Hemoglobin 12.8 g/dl (12.0-16.0); Mean Corpuscular HGB Conc 34.4 g/dl (31.0-35.0); Mean Corpuscular Hemoglobin 32.3 pg (27.0-33.0); Mean Corpuscular Volume 93.9 fL (80.0-98.0); NRBC Abs Auto 0.000 X10*3/uL (0.0-0.012); NRBC Pct Auto 0.0 /100WBC (0.0-0.2); Platelet Count 257 X10*3/uL (160-400); Red Blood Count 3.96 X10*6/uL (4.20-5.50); White Blood Count 7.3 X10*3/uL (4.8-10.8)
[2025-03-13 07:01] LABS: Anion Gap 9 (12-20); Blood Urea Nitrogen 13 mg/dL (9-16); Calcium 9.0 mg/dL (8.4-10.2); Carbon Dioxide 26 mmol/L (22-29); Chloride 108 mmol/L (96-108); Creatinine Clr Calc Pharmacy 91.0; Estimated Glomerular Filt Rate > 60; Potassium 4.3 mmol/L (3.3-5.1); Sodium 139 mmol/L (135-145)
[2025-03-13] MEDS: Albuterol/Iprat 2.5/0.5MG 3 ML AMPUL.NEB INHALE ×3 (07:51→18:39)
[2025-03-13] MEDS: 0.9 % Sodium Chloride Flush 3 ML SYRINGE IVFLUSH ×2 (08:41→20:17)
--- NOTE | 2025-03-13 09:11 | P.PNIM_ITS ---
Subjective Subjective Date of Service: 03/13/25 Interval History: still sob, increased o2 requirements Physical Exam 2 Exam: Exam: General: AO X 3, ill appearing, dyspneic Resp: poor air movement and wheezing bilateral, accessory muscles used CVS: S1,S2,RRR GI: soft, non tender, non distended Neuro: motor grossly intact, alert Psych: appropriate affect, appropriate insight Vital Signs: Vital Signs: Last Vital Signs Temp 98.0 F 03/13/25 07:56 Pulse 69 03/13/25 07:56 Resp 18 03/13/25 07:56 BP 145/84 H 03/13/25 07:56 Pulse Ox 90 L 03/13/25 07:56 O2 Del Method Nasal Cannula 03/13/25 07:56 O2 Flow Rate 5 03/13/25 07:56 BMI result Body Mass Index 20.6 Objective Data Active Medications Acetaminophen (Acetaminophen 325 Mg Tablet) 650 mg PO Q6H PRN PRN Reason: Pain, Mild 1-3,fever,headache Albuterol/Ipratropium (Albuterol/Iprat 2.5/0.5mg 3 Ml Ampul.Neb) 3 ml INHALE Q4H PRN PRN Reason: Shortness of Breath/Wheezing Last Admin: 03/11/25 18:19 Dose: 3 ml Documented By: DEIDRA Albuterol/Ipratropium (Albuterol/Iprat 2.5/0.5mg 3 Ml Ampul.Neb) 3 ml INHALE RQ6H WHILE AWAKE [facility] Last Admin: 03/13/25 07:51 Dose: 3 ml Documented By: MARJORIE Amlodipine Besylate (Amlodipine Besylate 5 Mg Tablet) 5 mg PO DAILY [facility]; Protocol Last Admin: 03/13/25 08:37 Dose: 5 mg Documented By: MICHELLE Azithromycin (Azithromycin 500 Mg Tablet) 500 mg PO Q24H [facility] Last Admin: 03/12/25 20:58 Dose: 500 mg Documented By: SILKE Benzonatate (Benzonatate 100 Mg Capsule) 100 mg PO TID PRN PRN Reason: Cough Last Admin: 03/12/25 08:27 Dose: 100 mg Documented By: LYNNE Calcium Carbonate (Calcium Carbonate 750 Mg Tab.Chew) 750 mg PO Q4H PRN PRN Reason: Heartburn Cefuroxime Axetil (Cefuroxime Axetil 500 Mg Tablet) 500 mg PO Q12H [facility] Last Admin: 03/13/25 08:38 Dose: 500 mg Documented By: MICHELLE Enoxaparin Sodium (Enoxaparin Sodium 40 Mg/0.4 Ml Syringe) 40 mg SUBCUT Q24H [facility] Last Admin: 03/12/25 20:58 Dose: 40 mg Documented By: SILKE Guaifenesin/Dextromethorphan (Guaifenesin Dm 100/10/5 Ml 5 Ml Syrup) 5 ml PO Q4H PRN PRN Reason: Cough Last Admin: 03/12/25 17:29 Dose: 5 ml Documented By: LYNNE Magnesium Hydroxide (Milk Of Magnesia 30 Ml Oral.Susp) 30 ml PO DAILY PRN PRN Reason: Constipation Melatonin (Melatonin 3 Mg Tablet) 6 mg PO BEDTIME PRN PRN Reason: Insomnia Methylprednisolone Sodium Succinate (Methylprednisolone Sod Succ 40 Mg/Ml Vial) 40 mg IVPUSH Q12H [facility] Last Admin: 03/13/25 08:38 Dose: 40 mg Documented By: MICHELLE Sodium Chloride (0.9 % Sodium Chloride Flush 3 Ml Syringe) 3 ml IVFLUSH QSHIFT [facility] Last Admin: 03/13/25 08:41 Dose: 3 ml Documented By: MICHELLE Labs 03/13/25 06:24 03/13/25 06:24 Labs: Laboratory Results - last 24 hr 03/13/25 06:24 MCV 93.9 MCH 32.3 MCHC 34.4 RDW 13.4 Plt Count 257 MPV 9.6 Absolute Nucleated RBC 0.000 Nucleated RBC % (auto) 0.0 Anion Gap 9 L Estim Creat Clear Calc 91.0 Estimated GFR > 60 Random Glucose 124 H Calcium 9.0 D Assessment and Plan (1) Asthma exacerbation: Status: Acute Plan 54F PMH hypertension, moderate persistent asthma presented with shortness of breaths hypoxia Acute hypoxic respiratory failure due to moderate persistent asthma with acute decompensation Continues to be symptomatic continues to desaturate to high 80s on 4L, now requiring 5L o2 to maintain sat of 92% Continue IV Solu-Medrol and DuoNebs Continue azithromycin, added cefuroxime for possible pneumonia Wean oxygen as tolerated Hypertension Amlodipine DVT prophylaxis with Lovenox Full code reason for continued hospitalization: Still hypoxic and short of breath Quality Stroke Does the patient have a stroke diagnosis?: No VTE Prior VTE?: No VTE Risk Level:: Medical - moderate - high VTE Device Contraindication: Treatment Not Indicated VTE Drug Contraindication: N/A - Med Ordered
[2025-03-13 11:07] LABS: ABG HCO3 26 mmol/L (22-26); ABG O2 % Saturation 84.0 %
--- NOTE | 2025-03-13 11:38 | PC.RT ---
ABG drawn per order, results given to MD. PAO2 57 on 6L NC, SATs 84%. Pt placed on high flow nasal cannula. RT assisted pt out of bed and set up in a chair. Pt instructed on deep breathing in through nose. Pt comfortable at this time, will continue to monitor.
[2025-03-13] MEDS: iohexoL 350 MG/ML 100 ML INFUS..BTL IV (12:02)
[2025-03-13 12:21] LABS: ABG Refer to POC result
--- NOTE | 2025-03-13 16:34 | PC.RT ---
RT called by RN due to pt desat. High flow titrated for SAT >90%. RT gave pt incentive spirometer and flutter valve. Education given, pt able to perform adequately. Will continue to monitor.
[2025-03-13] MEDS: guaiFENesin DM 100/10/5 ML 5 ML SYRUP PO (20:15)
[2025-03-14] VITALS (14 sets, daily range): BP systolic 132–142; BP diastolic 74–94; PULSE 68–110; RESP 16–22; TEMP 36.6–37.1; O2SAT 90–97
[2025-03-14 07:22] LABS: Hematocrit 40.3 % (37.0-47.0); Hemoglobin 13.9 g/dl (12.0-16.0); Mean Corpuscular HGB Conc 34.5 g/dl (31.0-35.0); Mean Corpuscular Hemoglobin 32.8 pg (27.0-33.0); Mean Corpuscular Volume 95.0 fL (80.0-98.0); NRBC Abs Auto 0.000 X10*3/uL (0.0-0.012); NRBC Pct Auto 0.0 /100WBC (0.0-0.2); Platelet Count 273 X10*3/uL (160-400); Red Blood Count 4.24 X10*6/uL (4.20-5.50); White Blood Count 7.6 X10*3/uL (4.8-10.8)
[2025-03-14 07:38] LABS: Alanine Aminotransferase 16 U/L (0-31); Albumin Level 4.0 g/dL (3.5-5.0); Alkaline Phosphatase 85 U/L (39-117); Anion Gap 11 (12-20); Aspartate Amino Transferase 14 U/L (5-31); Blood Urea Nitrogen 14 mg/dL (9-16); Calcium 9.0 mg/dL (8.4-10.2); Carbon Dioxide 28 mmol/L (22-29); Chloride 106 mmol/L (96-108); Creatinine Clr Calc Pharmacy 79.4; Estimated Glomerular Filt Rate > 60; Magnesium 2.2 mg/dL (1.6-2.6); Potassium 4.1 mmol/L (3.3-5.1); Sodium 141 mmol/L (135-145); Total Protein 6.5 g/dL (6.5-8.0)
[2025-03-14] MEDS: Albuterol/Iprat 2.5/0.5MG 3 ML AMPUL.NEB INHALE ×3 (07:40→19:31)
[2025-03-14] MEDS: 0.9 % Sodium Chloride Flush 3 ML SYRINGE IVFLUSH (09:10)
--- NOTE | 2025-03-14 09:45 | P.PNIM_ITS ---
Subjective Subjective Date of Service: 03/14/25 Interval History: still sob, increased o2 requirements, now on high flow Physical Exam 2 Exam: Exam: General: AO X 3, ill appearing, dyspneic Resp: poor air movement and wheezing bilateral, accessory muscles used CVS: S1,S2,RRR GI: soft, non tender, non distended Neuro: motor grossly intact, alert Psych: appropriate affect, appropriate insight Vital Signs: Vital Signs: Last Vital Signs Temp 98.1 F 03/14/25 08:00 Pulse 89 03/14/25 08:00 Resp 20 03/14/25 08:00 BP 142/94 H 03/14/25 08:00 Pulse Ox 92 03/14/25 08:00 O2 Del Method High Flow Nasal C annula 03/14/25 08:00 O2 Flow Rate 80 03/14/25 08:00 FiO2 50 03/14/25 08:00 BMI result Body Mass Index 20.6 Objective Data Active Medications Acetaminophen (Acetaminophen 325 Mg Tablet) 650 mg PO Q6H PRN PRN Reason: Pain, Mild 1-3,fever,headache Last Admin: 03/14/25 08:00 Dose: 650 mg Documented By: CHRISTINE Albuterol/Ipratropium (Albuterol/Iprat 2.5/0.5mg 3 Ml Ampul.Neb) 3 ml INHALE Q4H PRN PRN Reason: Shortness of Breath/Wheezing Last Admin: 03/11/25 18:19 Dose: 3 ml Documented By: DEIDRA Albuterol/Ipratropium (Albuterol/Iprat 2.5/0.5mg 3 Ml Ampul.Neb) 3 ml INHALE RQ6H WHILE AWAKE [facility] Last Admin: 03/14/25 07:40 Dose: 3 ml Documented By: TIFFANIE Amlodipine Besylate (Amlodipine Besylate 5 Mg Tablet) 5 mg PO DAILY [facility]; Protocol Last Admin: 03/14/25 09:10 Dose: 5 mg Documented By: CHRISTINE Azithromycin (Azithromycin 500 Mg Tablet) 500 mg PO Q24H [facility] Last Admin: 03/13/25 20:14 Dose: 500 mg Documented By: LUCY Benzonatate (Benzonatate 100 Mg Capsule) 100 mg PO TID PRN PRN Reason: Cough Last Admin: 03/12/25 08:27 Dose: 100 mg Documented By: LYNNE Calcium Carbonate (Calcium Carbonate 750 Mg Tab.Chew) 750 mg PO Q4H PRN PRN Reason: Heartburn Enoxaparin Sodium (Enoxaparin Sodium 40 Mg/0.4 Ml Syringe) 40 mg SUBCUT Q24H [facility] Last Admin: 03/13/25 20:15 Dose: 40 mg Documented By: LUCY Guaifenesin/Dextromethorphan (Guaifenesin Dm 100/10/5 Ml 5 Ml Syrup) 5 ml PO Q4H PRN PRN Reason: Cough Last Admin: 03/13/25 20:15 Dose: 5 ml Documented By: LUCY Ceftriaxone Sodium 1 gm/ (Sodium Chloride) 50 mls @ 100 mls/hr IV Q24H [facility] Last Admin: 03/14/25 09:10 Dose: 100 mls/hr Documented By: CHRISTINE Magnesium Hydroxide (Milk Of Magnesia 30 Ml Oral.Susp) 30 ml PO DAILY PRN PRN Reason: Constipation Melatonin (Melatonin 3 Mg Tablet) 6 mg PO BEDTIME PRN PRN Reason: Insomnia Methylprednisolone Sodium Succinate (Methylprednisolone Sod Succ 40 Mg/Ml Vial) 40 mg IVPUSH Q12H [facility] Last Admin: 03/14/25 09:10 Dose: 40 mg Documented By: CHRISTINE Sodium Chloride (0.9 % Sodium Chloride Flush 3 Ml Syringe) 3 ml IVFLUSH QSHIFT [facility] Last Admin: 03/14/25 09:10 Dose: 3 ml Documented By: CHRISTINE Labs 03/14/25 06:53 03/14/25 06:53 Labs: Laboratory Results - last 24 hr 03/13/25 03/14/25 11:03 06:53 MCV 95.0 MCH 32.8 MCHC 34.5 RDW 13.2 Plt Count 273 MPV 9.4 Absolute Nucleated RBC 0.000 Nucleated RBC % (auto) 0.0 O2 Saturation 84.0 ABG pH at Pt Temp 7.44 ABG pCO2 at Pt Temp 38 ABG pO2 at Pt Temp 57 L ABG HCO3 26 ABG Base Excess (Actual) 2.9 Anion Gap 11 L Estim Creat Clear Calc 79.4 Estimated GFR > 60 Random Glucose 116 H Calcium 9.0 Magnesium 2.2 Total Bilirubin 0.4 Direct Bilirubin 0.1 AST 14 ALT 16 Alkaline Phosphatase 85 Total Protein 6.5 Albumin 4.0 Assessment and Plan (1) Asthma exacerbation: Status: Acute Plan 54F PMH hypertension, moderate persistent asthma presented with shortness of breaths hypoxia Acute hypoxic respiratory failure due to moderate persistent asthma with acute decompensation further complicated by bilateral pneumonia, atelectasis and possible mucus plugging started on high flow 03/13/25, CTA with no PE but has bilateral pna and possibel mucus plugging Continue IV Solu-Medrol and DuoNebs Continue azithromycin, ceftriaxone pulm eval Wean oxygen as tolerated Hypertension Amlodipine DVT prophylaxis with Lovenox Full code reason for continued hospitalization: Still hypoxic and short of breath Quality Stroke Does the patient have a stroke diagnosis?: No VTE Prior VTE?: No VTE Risk Level:: Medical - moderate - high VTE Device Contraindication: Treatment Not Indicated VTE Drug Contraindication: N/A - Med Ordered
[2025-03-14] MEDS: guaiFENesin DM 100/10/5 ML 5 ML SYRUP PO (12:40)
[2025-03-14 14:04] LABS: Chlamydia pneumoniae PCR Not Detected (Not Detect.); Coronavirus 229E PCR Not Detected (Not Detect.); Coronavirus HKU1 PCR Not Detected (Not Detect.); Coronavirus NL63 PCR Not Detected (Not Detect.); Coronavirus OC43 PCR Not Detected (Not Detect.); RSV PCR Not Detected (Not Detect.); Rhino/Enterovirus PCR Not Detected (Not Detect.)
[2025-03-14 14:34] LABS: Influenza A H1 PCR Not Detected (Not Detect.); Influenza A H1-2009 PCR Not Detected (Not Detect.); Influenza A H3 PCR Not Detected (Not Detect.); SARS-CoV-2 PCR Not Detected (Not Detect.)
--- NOTE | 2025-03-14 18:12 | PM.CNPUL ---
History of Present Illness History of Present Illness Consult date: 03/14/25 Chief complaint: Asthma Narrative: 54-year-old lady with underlying asthma admitted on 03/10/2025 with nonproductive cough and dyspnea on exertion further complicated by significant hypoxemia. Patient was treated empirically asthma exacerbation and community-acquired pneumonia with slow improvements. On my review of CT angio chest no evidence of pulmonary emboli and no significant consolidation to suspect lobar pneumonia that would explain her hypoxemia. Review of Systems Constitutional: Constitutional: Denies daytime sleepiness, Denies excessive sweating, Denies fatigue, Denies fever(s), Denies lethargy, Denies malaise, Denies night sweats, Denies snoring and Denies weight loss Eyes: Eyes: Denies blurry vision and Denies itchy eyes ENT: Denies nasal congestion, Denies post nasal drip, Denies sinus pain, Denies sinus pressure and Denies other ( Thrush) Cardiovascular: Cardiovascular: Denies chest pain, Denies pedal edema, Denies dyspnea, Reports dyspnea on exertion, Denies orthopnea and Denies paroxysmal nocturnal dyspnea Respiratory: Respiratory: Denies cough, Denies hemoptysis, Denies excessive phlegm production, Denies dyspnea, Reports dyspnea on exertion, Denies snoring and Denies wheezing Gastrointestinal: Gastrointestinal: Denies abdominal pain and Denies heartburn Musculoskeletal: Musculoskeletal: Denies myalgias, Denies arthralgias and Denies joint swelling Integumentary/Breasts: Skin/Breast: Denies rash Neurologic: Denies memory loss and Denies seizure-like activity Psychiatric: Psychiatric: Denies abnormal sleep pattern, Denies anxiety and Denies memory loss Endocrine: Endocrine: Denies excessive sweating, Denies fatigue and Denies heat intolerance Hematologic/Lymphatic: Hematologic/Lymphatic: Denies easy bruising Allergic/Immunologic: Allergic/Immunologic: Denies itchy eyes, Denies seasonal rhinorrhea and Denies wheezing PMFSH Past Medical History Medical History Cyst Asthma Wears dentures Hx of allergic reaction Smoker Surgical History Surgical History Hx of colonoscopy (~06/2020) Hx of tonsillectomy Hx of tubal ligation Social History Social History Household Members: Children Housing: Apartment Do you presently have visiting nurse or other home services: No Patient Tobacco Use Status: Current someday Tobacco user Tobacco use type: Cigarette Cigarettes Per Day: 5 Years Smoked: 20 Smoked in Last 30 Days: Yes Patient Interested in Nicotine Replacement: No Patient Given Instructions on How to Stop Smoking: No (refusing) Second Hand Smoke Exposure: No Use of substances other than those prescribed or required for medical reasons: Yes Substance Use Type: Marijuana Currently Displaying Signs/Symptoms of Drug Intoxication Withdrawal: No Have you been hit, kicked, punched, or otherwise hurt by someone within the past year? If so, by whom?: No Do you feel safe in your current relationship?: No Current Relationship Are you made to feel afraid or neglected: No Advance Directives: No Advance Directives Information Provided: No Do you have a plan to hurt others: No Plan Recently lost weight without trying: Yes How much weight loss: 14-23 pounds Eating poorly because of decreased appetite: Yes Nutrition screen score: 5 Nutrition Risks: No Nutritional Risk Patient : No : No Poor oral hygiene: No service: No Meds Allergies Allergy/AdvReac Type Severity Reaction Status Date / Time aspirin (ASPIRIN) Allergy Unknown Unknown Verified 03/10/25 14:50 Penicillins (PENICILLINS) Allergy Unknown Unknown Verified 03/10/25 14:50 Active Medications: Current Medications Acetaminophen (Acetaminophen 325 Mg Tablet) 650 mg PO Q6H PRN PRN Reason: Pain, Mild 1-3,fever,headache Last Admin: 03/14/25 08:00 Dose: 650 mg Albuterol/Ipratropium (Albuterol/Iprat 2.5/0.5mg 3 Ml Ampul.Neb) 3 ml INHALE Q4H PRN PRN Reason: Shortness of Breath/Wheezing Last Admin: 03/11/25 18:19 Dose: 3 ml Albuterol/Ipratropium (Albuterol/Iprat 2.5/0.5mg 3 Ml Ampul.Neb) 3 ml INHALE RQ6H WHILE AWAKE [facility] Last Admin: 03/14/25 13:48 Dose: 3 ml Amlodipine Besylate (Amlodipine Besylate 5 Mg Tablet) 5 mg PO DAILY [facility]; Protocol Last Admin: 03/14/25 09:10 Dose: 5 mg Azithromycin (Azithromycin 500 Mg Tablet) 500 mg PO Q24H [facility] Last Admin: 03/13/25 20:14 Dose: 500 mg Benzonatate (Benzonatate 100 Mg Capsule) 100 mg PO TID PRN PRN Reason: Cough Last Admin: 03/14/25 12:40 Dose: 100 mg Calcium Carbonate (Calcium Carbonate 750 Mg Tab.Chew) 750 mg PO Q4H PRN PRN Reason: Heartburn Enoxaparin Sodium (Enoxaparin Sodium 40 Mg/0.4 Ml Syringe) 40 mg SUBCUT Q24H [facility] Last Admin: 03/13/25 20:15 Dose: 40 mg Guaifenesin/Dextromethorphan (Guaifenesin Dm 100/10/5 Ml 5 Ml Syrup) 5 ml PO Q4H PRN PRN Reason: Cough Last Admin: 03/14/25 12:40 Dose: 5 ml Ceftriaxone Sodium 1 gm/ (Sodium Chloride) 50 mls @ 100 mls/hr IV Q24H [facility] Last Infusion: 03/14/25 10:01 Dose: Infused Magnesium Hydroxide (Milk Of Magnesia 30 Ml Oral.Susp) 30 ml PO DAILY PRN PRN Reason: Constipation Melatonin (Melatonin 3 Mg Tablet) 6 mg PO BEDTIME PRN PRN Reason: Insomnia Methylprednisolone Sodium Succinate (Methylprednisolone Sod Succ 40 Mg/Ml Vial) 40 mg IVPUSH Q12H [facility] Last Admin: 03/14/25 09:10 Dose: 40 mg Sodium Chloride (0.9 % Sodium Chloride Flush 3 Ml Syringe) 3 ml IVFLUSH QSHIFT [facility] Last Admin: 03/14/25 16:48 Dose: Not Given Home Medications ?Medication ?Instructions ?Recorded ?Confirmed ?Last Taken ?Type acetaminophen 500 mg tablet 1,000 mg PO Q6H PRN fever 03/10/25 03/10/25 Unknown History albuterol sulfate 2.5 mg/3 mL 2.5 mg inhalation Q4H PRN 03/10/25 03/10/25 Unknown History (0.083 %) solution for nebulization Shortness Of Breath Or Wheezing albuterol sulfate 90 mcg/actuation 2 puff inhalation Q4H PRN 03/10/25 03/10/25 Unknown History aerosol inhaler (Ventolin HFA) Shortness Of Breath Or Wheezing amlodipine 5 mg tablet 5 mg PO DAILY 03/10/25 03/10/25 3 Days Ago History ~03/07/25 Physical Exam Vital Signs: Vital Signs: Last Vital Signs Temp 98.7 F 03/14/25 16:00 Pulse 99 03/14/25 16:00 Resp 18 03/14/25 16:00 BP 132/78 03/14/25 16:00 Pulse Ox 90 L 03/14/25 16:00 O2 Del Method High Flow Nasal C annula 03/14/25 16:00 O2 Flow Rate 15 03/14/25 16:00 FiO2 80 03/14/25 16:00 BMI result Body Mass Index 20.6 Const: General: no acute distress and alert Nutritional Appearance: not obese Orientation/consciousness: Other orientation findings ( oriented) HEENT: Head: Yes atraumatic Eyes: General: appearance normal, both eyes and all related structures Sclerae: sclerae normal EOM: EOMs intact bilaterally Neck: Neck: Yes supple Lymphatic: no lymphadenopathy noted Resp: Effort & Inspection: normal respiratory effort and no use of accessory muscles Auscultation: clear to auscultation bilaterally Cardio: Rate: regular rate Rhythm: regular rhythm Heart sounds: no gallops, no murmurs and no rubs Skin: General skin exam: other ( warm) Extrem: General: No clubbing, No cyanosis and No edema Results Laboratory Findings 03/14/25 06:53 03/14/25 06:53 Abnormal lab findings: Abnormal Labs 03/10/25 03/10/25 03/11/25 14:52 16:41 06:25 RBC MCHC 35.2 H MPV 9.2 L Neut % (Auto) 86.3 H Lymph % (Auto) 12.3 L [place] % (Auto) 0.9 L Eos % (Auto) 12.9 H Lymph # (Auto) 0.8 L Eos # (Auto) 0.9 H ABG pO2 at Pt Temp Chloride 109 H Carbon Dioxide 21 L Anion Gap BUN 6 L Random Glucose 121 H Magnesium 3.0 H 03/13/25 03/13/25 03/14/25 06:24 11:03 06:53 RBC 3.96 L MCHC MPV Neut % (Auto) Lymph % (Auto) [place] % (Auto) Eos % (Auto) Lymph # (Auto) Eos # (Auto) ABG pO2 at Pt Temp 57 L Chloride Carbon Dioxide Anion Gap 9 L 11 L BUN Random Glucose 124 H 116 H Magnesium Assessment and Plan (1) Acute respiratory failure with hypoxia: Status: Acute (2) Asthma: Status: Acute Plan Impression: 54-year-old lady with underlying asthma admitted with dyspnea acute hypoxia, now improving slowly. CT angio chest with no evidence of pulmonary emboli, but right-sided small infiltrate, but no lobar consolidation to explain significant pneumonia. Likely an aspiration event on top of underlying asthma. Improving slowly. Recommendations: Agree with current empiric regimen of systemic glucocorticoids, nebulized bronchodilators, and aspiration pneumonia coverage. Procedures Date of Service Date of Service: 03/14/25
[2025-03-15] VITALS (11 sets, daily range): BP systolic 126–138; BP diastolic 67–84; PULSE 77–104; RESP 16–18; TEMP 36.3–37.1; O2SAT 88–94
[2025-03-15 07:43] LABS: Hematocrit 39.8 % (37.0-47.0); Hemoglobin 13.3 g/dl (12.0-16.0); Mean Corpuscular HGB Conc 33.4 g/dl (31.0-35.0); Mean Corpuscular Hemoglobin 32.0 pg (27.0-33.0); Mean Corpuscular Volume 95.7 fL (80.0-98.0); NRBC Abs Auto 0.000 X10*3/uL (0.0-0.012); NRBC Pct Auto 0.0 /100WBC (0.0-0.2); Platelet Count 279 X10*3/uL (160-400); Red Blood Count 4.16 X10*6/uL (4.20-5.50); White Blood Count 7.7 X10*3/uL (4.8-10.8)
[2025-03-15] MEDS: Albuterol/Iprat 2.5/0.5MG 3 ML AMPUL.NEB INHALE ×4 (07:47→20:38)
[2025-03-15 08:23] LABS: Anion Gap 10 (12-20); Blood Urea Nitrogen 13 mg/dL (9-16); Calcium 8.9 mg/dL (8.4-10.2); Carbon Dioxide 29 mmol/L (22-29); Chloride 108 mmol/L (96-108); Creatinine Clr Calc Pharmacy 84.2; Estimated Glomerular Filt Rate > 60; Magnesium 2.2 mg/dL (1.6-2.6); Potassium 4.2 mmol/L (3.3-5.1); Sodium 143 mmol/L (135-145)
--- NOTE | 2025-03-15 09:35 | PC.RT ---
RT at beside for pt assessment. HFNC taken off to address nose soreness. Pt SATs 93% on RA. Pt left off HFNC, will continue to monitor.
[2025-03-15] MEDS: 0.9 % Sodium Chloride Flush 3 ML SYRINGE IVFLUSH (09:41)
[2025-03-15] MEDS: guaiFENesin DM 100/10/5 ML 5 ML SYRUP PO ×2 (09:48→20:22)
--- NOTE | 2025-03-15 12:18 | MHC.CM.PN ---
Per ROUNDS discussion, Patient is not yet medically cleared for dc (IV ABX, IV Solu Medrol); home is the goal and CM will continue to follow.
--- NOTE | 2025-03-15 15:41 | HO.PM.IMPN ---
Subjective Subjective Date of Service: 03/15/25 Interval History: Breathing slowly improving. Able to wean off high flow Review of Systems Denies chest pain Admits shortness of breath that is improving Denies nausea vomiting diarrhea Denies fever chills Physical Exam Vital Signs: Vital Signs: Last Vital Signs Temp 98.7 F 03/15/25 11:03 Pulse 104 H 03/15/25 13:16 Resp 16 03/15/25 13:16 BP 138/77 03/15/25 11:03 Pulse Ox 88 L 03/15/25 11:03 O2 Del Method Room Air 03/15/25 11:03 O2 Flow Rate 35 03/15/25 07:39 FiO2 60 03/15/25 07:39 BMI result Body Mass Index 20.6 Const: Other: Awake alert able to speak in full sentences Resp: Other: Diminished at bases with scattered expiratory wheezes throughout Cardio: Other: No S4; positive S1-S2; no S3 murmurs rubs or gallops GI: Other: Soft nontender nondistended normoactive bowel sounds Extrem: Other: No edema bilaterally Objective Data Active Medications Acetaminophen (Acetaminophen 325 Mg Tablet) 650 mg PO Q6H PRN PRN Reason: Pain, Mild 1-3,fever,headache Last Admin: 03/14/25 20:36 Dose: 650 mg Documented By: LUCY Albuterol/Ipratropium (Albuterol/Iprat 2.5/0.5mg 3 Ml Ampul.Neb) 3 ml INHALE Q4H PRN PRN Reason: Shortness of Breath/Wheezing Last Admin: 03/11/25 18:19 Dose: 3 ml Documented By: DEIDRA Albuterol/Ipratropium (Albuterol/Iprat 2.5/0.5mg 3 Ml Ampul.Neb) 3 ml INHALE RQ6H WHILE AWAKE [facility] Last Admin: 03/15/25 13:16 Dose: 3 ml Documented By: MARJORIE Amlodipine Besylate (Amlodipine Besylate 5 Mg Tablet) 5 mg PO DAILY [facility]; Protocol Last Admin: 03/15/25 09:47 Dose: 5 mg Documented By: XOCHILT Azithromycin (Azithromycin 500 Mg Tablet) 500 mg PO Q24H [facility] Last Admin: 03/14/25 20:35 Dose: 500 mg Documented By: LUCY Benzonatate (Benzonatate 100 Mg Capsule) 100 mg PO TID PRN PRN Reason: Cough Last Admin: 03/14/25 12:40 Dose: 100 mg Documented By: CHRISTINE Calcium Carbonate (Calcium Carbonate 750 Mg Tab.Chew) 750 mg PO Q4H PRN PRN Reason: Heartburn Enoxaparin Sodium (Enoxaparin Sodium 40 Mg/0.4 Ml Syringe) 40 mg SUBCUT Q24H [facility] Last Admin: 03/14/25 20:35 Dose: 40 mg Documented By: LUCY Guaifenesin/Dextromethorphan (Guaifenesin Dm 100/10/5 Ml 5 Ml Syrup) 5 ml PO Q4H PRN PRN Reason: Cough Last Admin: 03/15/25 09:48 Dose: 5 ml Documented By: XOCHILT Ceftriaxone Sodium 1 gm/ (Sodium Chloride) 50 mls @ 100 mls/hr IV Q24H [facility] Last Infusion: 03/15/25 11:22 Dose: Infused Documented By: XOCHILT Magnesium Hydroxide (Milk Of Magnesia 30 Ml Oral.Susp) 30 ml PO DAILY PRN PRN Reason: Constipation Melatonin (Melatonin 3 Mg Tablet) 6 mg PO BEDTIME PRN PRN Reason: Insomnia Methylprednisolone Sodium Succinate (Methylprednisolone Sod Succ 125 Mg/2 Ml Vial) 60 mg IVPUSH Q6H [facility] Last Admin: 03/15/25 14:28 Dose: 60 mg Documented By: XOCHILT Sodium Chloride (0.9 % Sodium Chloride Flush 3 Ml Syringe) 3 ml IVFLUSH QSHIFT [facility] Last Admin: 03/15/25 09:41 Dose: 3 ml Documented By: XOCHILT Labs 03/15/25 07:00 03/15/25 07:00 Labs: Laboratory Results - last 24 hr 03/15/25 07:00 MCV 95.7 MCH 32.0 MCHC 33.4 RDW 13.1 Plt Count 279 MPV 9.5 Absolute Nucleated RBC 0.000 Nucleated RBC % (auto) 0.0 Anion Gap 10 L Estim Creat Clear Calc 84.2 Estimated GFR > 60 Random Glucose 114 Calcium 8.9 Magnesium 2.2 Assessment and Plan (1) Bilateral pneumonia: Status: Acute (2) Acute respiratory failure with hypoxia: Status: Acute (3) Asthma exacerbation: Status: Acute Plan 54F PMH hypertension, moderate persistent asthma presented with shortness of breaths hypoxia 1.Acute hypoxic respiratory failure due to moderate persistent asthma with acute decompensation further complicated by bilateral pneumonia -successfully weaned off high flow O2; titrate O2 to maintain sats greater than equal 90% -increase Solu-[id number] Q6 -azithromycin/ceftriaxone(3) 2.Hypertension -acceptable control on current therapies -adjust as indicated Lovenox Full code reason for continued hospitalization: Still hypoxic and short of breath Quality Stroke Does the patient have a stroke diagnosis?: No VTE Prior VTE?: No VTE Risk Level:: Medical - moderate - high VTE Device Contraindication: Treatment Not Indicated VTE Drug Contraindication: N/A - Med Ordered
[2025-03-16] VITALS (9 sets, daily range): BP systolic 130–175; BP diastolic 74–95; PULSE 76–110; RESP 15–20; TEMP 36.3–37.2; O2SAT 87–94
[2025-03-16] MEDS: 0.9 % Sodium Chloride Flush 3 ML SYRINGE IVFLUSH ×3 (01:55→20:18)
[2025-03-16] MEDS: Albuterol/Iprat 2.5/0.5MG 3 ML AMPUL.NEB INHALE ×3 (07:45→19:45)
[2025-03-16] MEDS: guaiFENesin DM 100/10/5 ML 5 ML SYRUP PO ×3 (08:16→23:50)
--- NOTE | 2025-03-16 14:23 | HO.PM.IMPN ---
Subjective Subjective Date of Service: 03/16/25 Interval History: Some improvement overnight with increased steroid dosing. Able to speak in full sentences Review of Systems Denies chest pain Admits shortness of breath that is improving Denies nausea vomiting diarrhea Denies fever chills Physical Exam Vital Signs: Vital Signs: Last Vital Signs Temp 98.9 F 03/16/25 10:55 Pulse 110 H 03/16/25 10:55 Resp 16 03/16/25 10:55 BP 142/74 H 03/16/25 10:55 Pulse Ox 88 L 03/16/25 10:55 O2 Del Method Nasal Cannula 03/16/25 10:55 O2 Flow Rate 2 03/16/25 10:55 FiO2 60 03/15/25 07:39 BMI result Body Mass Index 20.6 Const: Other: Awake alert able to speak in full sentences Resp: Other: Diminished at bases with scattered expiratory wheezes throughout Cardio: Other: No S4; positive S1-S2; no S3 murmurs rubs or gallops GI: Other: Soft nontender nondistended normoactive bowel sounds Extrem: Other: No edema bilaterally Objective Data Active Medications Acetaminophen (Acetaminophen 325 Mg Tablet) 650 mg PO Q6H PRN PRN Reason: Pain, Mild 1-3,fever,headache Last Admin: 03/16/25 08:21 Dose: 650 mg Documented By: JEREMY Albuterol/Ipratropium (Albuterol/Iprat 2.5/0.5mg 3 Ml Ampul.Neb) 3 ml INHALE Q4H PRN PRN Reason: Shortness of Breath/Wheezing Last Admin: 03/15/25 20:01 Dose: 3 ml Documented By: LINCOLN Albuterol/Ipratropium (Albuterol/Iprat 2.5/0.5mg 3 Ml Ampul.Neb) 3 ml INHALE RQ6H WHILE AWAKE [facility] Last Admin: 03/16/25 07:45 Dose: 3 ml Documented By: NIMO Amlodipine Besylate (Amlodipine Besylate 5 Mg Tablet) 5 mg PO DAILY [facility]; Protocol Last Admin: 03/16/25 08:11 Dose: 5 mg Documented By: JEREMY Azithromycin (Azithromycin 500 Mg Tablet) 500 mg PO Q24H [facility] Last Admin: 03/15/25 20:17 Dose: 500 mg Documented By: HO.KELLYCH Benzonatate (Benzonatate 100 Mg Capsule) 100 mg PO TID PRN PRN Reason: Cough Last Admin: 03/16/25 08:16 Dose: 100 mg Documented By: JEREMY Calcium Carbonate (Calcium Carbonate 750 Mg Tab.Chew) 750 mg PO Q4H PRN PRN Reason: Heartburn Enoxaparin Sodium (Enoxaparin Sodium 40 Mg/0.4 Ml Syringe) 40 mg SUBCUT Q24H [facility] Last Admin: 03/15/25 20:26 Dose: 40 mg Documented By: ANDRIA Guaifenesin/Dextromethorphan (Guaifenesin Dm 100/10/5 Ml 5 Ml Syrup) 5 ml PO Q4H PRN PRN Reason: Cough Last Admin: 03/16/25 08:16 Dose: 5 ml Documented By: JEREMY Ceftriaxone Sodium 1 gm/ (Sodium Chloride) 50 mls @ 100 mls/hr IV Q24H [facility] Last Infusion: 03/16/25 08:55 Dose: Infused Documented By: JEREMY Magnesium Hydroxide (Milk Of Magnesia 30 Ml Oral.Susp) 30 ml PO DAILY PRN PRN Reason: Constipation Melatonin (Melatonin 3 Mg Tablet) 6 mg PO BEDTIME PRN PRN Reason: Insomnia Methylprednisolone Sodium Succinate (Methylprednisolone Sod Succ 125 Mg/2 Ml Vial) 60 mg IVPUSH Q6H [facility] Last Admin: 03/16/25 08:11 Dose: 60 mg Documented By: JEREMY Sodium Chloride (0.9 % Sodium Chloride Flush 3 Ml Syringe) 3 ml IVFLUSH QSHIFT [facility] Last Admin: 03/16/25 08:11 Dose: 3 ml Documented By: JEREMY Labs 03/15/25 07:00 03/15/25 07:00 Assessment and Plan (1) Acute respiratory failure with hypoxia: Status: Acute (2) Bilateral pneumonia: Status: Acute (3) Asthma exacerbation: Status: Acute Plan 54F PMH hypertension, moderate persistent asthma presented with shortness of breaths hypoxia 1.Acute hypoxic respiratory failure due to moderate persistent asthma with acute decompensation further complicated by bilateral pneumonia -successfully weaned off high flow O2; titrate O2 to maintain sats greater than equal 90% -increase [id number] Q6... Good response thus far -azithromycin/ceftriaxone(4) 2.Hypertension -acceptable control on current therapies -adjust as indicated Lovenox Full code reason for continued hospitalization: Still hypoxic and short of breath Quality Stroke Does the patient have a stroke diagnosis?: No VTE Prior VTE?: No VTE Risk Level:: Medical - moderate - high VTE Device Contraindication: Treatment Not Indicated VTE Drug Contraindication: N/A - Med Ordered
[2025-03-17] VITALS (8 sets, daily range): BP systolic 135–153; BP diastolic 76–90; PULSE 71–99; RESP 16–18; TEMP 36.7–36.9; O2SAT 88–94
[2025-03-17] MEDS: guaiFENesin DM 100/10/5 ML 5 ML SYRUP PO ×3 (07:58→22:26)
[2025-03-17] MEDS: Albuterol/Iprat 2.5/0.5MG 3 ML AMPUL.NEB INHALE ×3 (07:59→18:34)
[2025-03-17] MEDS: 0.9 % Sodium Chloride Flush 3 ML SYRINGE IVFLUSH ×2 (08:01→20:23)
--- NOTE | 2025-03-17 10:35 | MHC.CM.PN ---
Per ROUNDS discussion, Patient is not yet medically cleared (Hypoxic, IV ABX, IV Solu Medrol); home is the goal and CM will continue to follow.
--- NOTE | 2025-03-17 16:14 | P.PNIM_ITS ---
Subjective Subjective Date of Service: 03/17/25 Interval History: Some improvement with IV steroids overnight however no significant change Review of Systems Denies chest pain Admits shortness of breath that is improving Denies nausea vomiting diarrhea Denies fever chills Physical Exam 2 Vital Signs: Vital Signs: Last Vital Signs Temp 98.3 F 03/17/25 15:58 Pulse 97 03/17/25 15:58 Resp 18 03/17/25 15:58 BP 152/76 H 03/17/25 15:58 Pulse Ox 92 03/17/25 15:58 O2 Del Method Nasal Cannula 03/17/25 15:58 O2 Flow Rate 5 03/17/25 15:58 FiO2 60 03/15/25 07:39 BMI result Body Mass Index 20.6 Const: Other: Awake alert able to speak in full sentences Resp: Other: Diminished at bases with scattered expiratory wheezes throughout Cardio: Other: No S4; positive S1-S2; no S3 murmurs rubs or gallops GI: Other: Soft nontender nondistended normoactive bowel sounds Extrem: Other: No edema bilaterally Objective Data Active Medications Acetaminophen (Acetaminophen 325 Mg Tablet) 650 mg PO Q6H PRN PRN Reason: Pain, Mild 1-3,fever,headache Last Admin: 03/17/25 07:59 Dose: 650 mg Documented By: JEREMY Albuterol/Ipratropium (Albuterol/Iprat 2.5/0.5mg 3 Ml Ampul.Neb) 3 ml INHALE Q4H PRN PRN Reason: Shortness of Breath/Wheezing Last Admin: 03/15/25 20:01 Dose: 3 ml Documented By: LINCOLN Albuterol/Ipratropium (Albuterol/Iprat 2.5/0.5mg 3 Ml Ampul.Neb) 3 ml INHALE RQ6H WHILE AWAKE [facility] Last Admin: 03/17/25 13:51 Dose: 3 ml Documented By: FABIO Amlodipine Besylate (Amlodipine Besylate 5 Mg Tablet) 5 mg PO DAILY [facility]; Protocol Last Admin: 03/17/25 08:00 Dose: 5 mg Documented By: JEREMY Azithromycin (Azithromycin 500 Mg Tablet) 500 mg PO Q24H [facility] Last Admin: 03/16/25 20:13 Dose: 500 mg Documented By: ANDRIA Benzonatate (Benzonatate 100 Mg Capsule) 100 mg PO TID PRN PRN Reason: Cough Last Admin: 03/17/25 08:01 Dose: 100 mg Documented By: JEREMY Calcium Carbonate (Calcium Carbonate 750 Mg Tab.Chew) 750 mg PO Q4H PRN PRN Reason: Heartburn Enoxaparin Sodium (Enoxaparin Sodium 40 Mg/0.4 Ml Syringe) 40 mg SUBCUT Q24H [facility] Last Admin: 03/16/25 20:13 Dose: 40 mg Documented By: ANDRIA Guaifenesin/Dextromethorphan (Guaifenesin Dm 100/10/5 Ml 5 Ml Syrup) 5 ml PO Q4H PRN PRN Reason: Cough Last Admin: 03/17/25 14:13 Dose: 5 ml Documented By: JEREMY Ceftriaxone Sodium 1 gm/ (Sodium Chloride) 50 mls @ 100 mls/hr IV Q24H [facility] Last Infusion: 03/17/25 08:49 Dose: Infused Documented By: JEREMY Magnesium Hydroxide (Milk Of Magnesia 30 Ml Oral.Susp) 30 ml PO DAILY PRN PRN Reason: Constipation Melatonin (Melatonin 3 Mg Tablet) 6 mg PO BEDTIME PRN PRN Reason: Insomnia Methylprednisolone Sodium Succinate (Methylprednisolone Sod Succ 125 Mg/2 Ml Vial) 60 mg IVPUSH Q6H [facility] Last Admin: 03/17/25 13:17 Dose: 60 mg Documented By: JEREMY Ondansetron HCl (Ondansetron Hcl 4 Mg/2 Ml Vial) 4 mg IVPUSH Q4H PRN PRN Reason: Nausea and Vomiting Last Admin: 03/17/25 14:11 Dose: 4 mg Documented By: JEREMY Sodium Chloride (0.9 % Sodium Chloride Flush 3 Ml Syringe) 3 ml IVFLUSH QSHIFT [facility] Last Admin: 03/17/25 08:01 Dose: 3 ml Documented By: JEREMY Labs 03/15/25 07:00 03/15/25 07:00 Assessment and Plan (1) Acute respiratory failure with hypoxia: Status: Acute (2) Asthma exacerbation: Status: Acute (3) Bilateral pneumonia: Status: Acute Plan 54F PMH hypertension, moderate persistent asthma presented with shortness of breaths hypoxia 1.Acute hypoxic respiratory failure due to moderate persistent asthma with acute decompensation further complicated by bilateral pneumonia -successfully weaned off high flow O2; titrate O2 to maintain sats greater than equal 90% -increase Solu-[id number] Q6... Good response thus far -azithromycin/ceftriaxone(5) 2.Hypertension -acceptable control on current therapies -adjust as indicated Lovenox Full code reason for continued hospitalization: Still hypoxic and short of breath Quality Stroke Does the patient have a stroke diagnosis?: No VTE Prior VTE?: No VTE Risk Level:: Medical - moderate - high VTE Device Contraindication: Treatment Not Indicated VTE Drug Contraindication: N/A - Med Ordered
[2025-03-18] VITALS (8 sets, daily range): BP systolic 127–169; BP diastolic 74–88; PULSE 76–115; RESP 16–19; TEMP 36.7–37.2; O2SAT 90–94
[2025-03-18 07:20] LABS: MANUAL DIFF FLAG NO
[2025-03-18 07:28] LABS: Hematocrit 37.6 % (37.0-47.0); Hemoglobin 13.1 g/dl (12.0-16.0); Imm Gran Abs Auto 0.08 X10*3/uL (0.00-0.03); Imm Gran Pct Auto 0.9 % (0.0-0.4); Lymphocytes Absolute Auto 0.8 X10*3/uL (1.2-4.9); Mean Corpuscular HGB Conc 34.8 g/dl (31.0-35.0); Mean Corpuscular Hemoglobin 32.3 pg (27.0-33.0); Mean Corpuscular Volume 92.8 fL (80.0-98.0); NRBC Abs Auto 0.000 X10*3/uL (0.0-0.012); NRBC Pct Auto 0.0 /100WBC (0.0-0.2); Platelet Count 279 X10*3/uL (160-400); Red Blood Count 4.05 X10*6/uL (4.20-5.50); White Blood Count 9.0 X10*3/uL (4.8-10.8)
[2025-03-18 07:39] LABS: Alanine Aminotransferase 29 U/L (0-31); Albumin Level 3.4 g/dL (3.5-5.0); Alkaline Phosphatase 78 U/L (39-117); Anion Gap 11 (12-20); Aspartate Amino Transferase 15 U/L (5-31); Blood Urea Nitrogen 17 mg/dL (9-16); Calcium 8.5 mg/dL (8.4-10.2); Carbon Dioxide 27 mmol/L (22-29); Chloride 105 mmol/L (96-108); Creatinine Clr Calc Pharmacy 79.4; Estimated Glomerular Filt Rate > 60; Potassium 4.2 mmol/L (3.3-5.1); Sodium 139 mmol/L (135-145); Total Protein 5.6 g/dL (6.5-8.0)
[2025-03-18] MEDS: 0.9 % Sodium Chloride Flush 3 ML SYRINGE IVFLUSH ×2 (08:19→19:36)
--- NOTE | 2025-03-18 13:09 | P.PNIM_ITS ---
Subjective Subjective Date of Service: 03/18/25 Interval History: dyspnea and wheezing improving using IS and Aerobika with relief Review of Systems Review of Systems: Yes all other systems are reviewed and are negative Physical Exam 2 Vital Signs: Vital Signs: Last Vital Signs Temp 98.0 F 03/18/25 11:41 Pulse 96 03/18/25 11:41 Resp 16 03/18/25 11:41 BP 150/74 H 03/18/25 11:41 Pulse Ox 90 L 03/18/25 11:41 O2 Del Method Nasal Cannula 03/18/25 11:41 O2 Flow Rate 4 03/18/25 11:41 FiO2 60 03/15/25 07:39 BMI result Body Mass Index 20.6 Gen: in no acute distress HEENT: sclera anicteric, moist mucus membranes Neck: supple Lungs: diminished Heart: regular rate and rhythm, no murmurs Abd: soft, non-tender, non-distended Ext: no edema Skin: warm/well-perfused Neuro: alert and oriented x3, no focal findings Psych: appropriate affect Objective Data Active Medications Acetaminophen (Acetaminophen 325 Mg Tablet) 650 mg PO Q6H PRN PRN Reason: Pain, Mild 1-3,fever,headache Last Admin: 03/17/25 22:26 Dose: 650 mg Documented By: ALEX Amlodipine Besylate (Amlodipine Besylate 5 Mg Tablet) 5 mg PO DAILY [facility]; Protocol Last Admin: 03/18/25 08:19 Dose: 5 mg Documented By: KANWAL Azithromycin (Azithromycin 500 Mg Tablet) 500 mg PO Q24H [facility] Last Admin: 03/17/25 20:23 Dose: 500 mg Documented By: ALEX Benzonatate (Benzonatate 100 Mg Capsule) 100 mg PO TID PRN PRN Reason: Cough Last Admin: 03/18/25 08:33 Dose: 100 mg Documented By: KANWAL Calcium Carbonate (Calcium Carbonate 750 Mg Tab.Chew) 750 mg PO Q4H PRN PRN Reason: Heartburn Enoxaparin Sodium (Enoxaparin Sodium 40 Mg/0.4 Ml Syringe) 40 mg SUBCUT Q24H [facility] Last Admin: 03/17/25 20:23 Dose: 40 mg Documented By: ALEX Guaifenesin/Dextromethorphan (Guaifenesin Dm 100/10/5 Ml 5 Ml Syrup) 5 ml PO Q4H PRN PRN Reason: Cough Last Admin: 03/17/25 22:26 Dose: 5 ml Documented By: ALEX Ceftriaxone Sodium 1 gm/ (Sodium Chloride) 50 mls @ 100 mls/hr IV Q24H [facility] Last Infusion: 03/18/25 10:02 Dose: Infused Documented By: KANWAL Magnesium Hydroxide (Milk Of Magnesia 30 Ml Oral.Susp) 30 ml PO DAILY PRN PRN Reason: Constipation Melatonin (Melatonin 3 Mg Tablet) 6 mg PO BEDTIME PRN PRN Reason: Insomnia Methylprednisolone Sodium Succinate (Methylprednisolone Sod Succ 125 Mg/2 Ml Vial) 40 mg IVPUSH Q12H [facility] Ondansetron HCl (Ondansetron Hcl 4 Mg/2 Ml Vial) 4 mg IVPUSH Q4H PRN PRN Reason: Nausea and Vomiting Last Admin: 03/18/25 12:55 Dose: 4 mg Documented By: ARON Sodium Chloride (0.9 % Sodium Chloride Flush 3 Ml Syringe) 3 ml IVFLUSH QSHIFT [facility] Last Admin: 03/18/25 08:19 Dose: 3 ml Documented By: KANWAL Labs 03/18/25 07:00 03/18/25 07:00 Labs: Laboratory Results - last 24 hr 03/18/25 07:00 MCV 92.8 MCH 32.3 MCHC 34.8 RDW 13.2 Plt Count 279 MPV 9.1 L Immature Gran % (Auto) 0.9 H Neut % (Auto) 87.2 H Lymph % (Auto) 8.8 L Piatt % (Auto) 3.1 Eos % (Auto) 0.0 Baso % (Auto) 0.0 Lymph # (Auto) 0.8 L Piatt # (Auto) 0.3 Eos # (Auto) 0.0 Baso # (Auto) 0.0 Abs Immat Gran (auto) 0.08 H Absolute Neuts (auto) 7.8 Absolute Nucleated RBC 0.000 Nucleated RBC % (auto) 0.0 Anion Gap 11 L Estim Creat Clear Calc 79.4 Estimated GFR > 60 Fasting Glucose 138 H Calcium 8.5 Total Bilirubin 0.3 AST 15 ALT 29 Alkaline Phosphatase 78 Total Protein 5.6 L Albumin 3.4 L Assessment and Plan (1) Acute respiratory failure with hypoxia: Status: Acute (2) Asthma exacerbation: Status: Acute (3) Bilateral pneumonia: Status: Acute Plan d9, 54yo F with HTN + moderate-persistent asthma admitted for hypoxia, not on home O2 acute hypoxic respiratory failure due to acute exacerbation of moderate- persistent asthma complicated by PNA - weaned off HFNC, currently on 4L O2 via NC - decrease Solumedrol from 60mg q6h to 40mg q12h, continue nebs + IS + Aerobika - azithromycin 03/10-03/20, ceftriaxone 03/14-03/21 - supplemental O2, wean as tolerated HTN: amlodipine VTE ppx: enoxaparin dispo: PT eval requested, will also need home O2 eval prior to d/c In my clinical judgment, the patient requires continued inpatient hospitalization for the following reasons: hypoxia, resp failure requiring HFNC recently Total time managing care of this patient today: 35 minutes. Quality Stroke Does the patient have a stroke diagnosis?: No VTE Prior VTE?: No VTE Risk Level:: Medical - moderate - high VTE Device Contraindication: Treatment Not Indicated VTE Drug Contraindication: N/A - Med Ordered
[2025-03-18] MEDS: guaiFENesin DM 100/10/5 ML 5 ML SYRUP PO (19:50)
[2025-03-18] MEDS: guaiFENesin LA 600 MG TAB.ER.12H PO (20:08)
[2025-03-18] MEDS: Albuterol/Iprat 2.5/0.5MG 3 ML AMPUL.NEB INHALE (20:15)
[2025-03-19] VITALS (8 sets, daily range): BP systolic 130–163; BP diastolic 77–86; PULSE 78–91; RESP 16–18; TEMP 36.5–36.9; O2SAT 90–95
[2025-03-19] MEDS: guaiFENesin LA 600 MG TAB.ER.12H PO ×2 (08:53→20:07)
--- NOTE | 2025-03-19 11:37 | P.PNIM_ITS ---
Subjective Subjective Date of Service: 03/19/25 Interval History: wheezing has improved, though still short of breath with ambulation requiring 4L O2 via [place] Review of Systems Review of Systems: Yes all other systems are reviewed and are negative Physical Exam 2 Vital Signs: Vital Signs: Last Vital Signs Temp 98.5 F 03/19/25 11:31 Pulse 91 03/19/25 11:31 Resp 16 03/19/25 11:31 BP 154/81 H 03/19/25 11:31 Pulse Ox 90 L 03/19/25 11:31 O2 Del Method Nasal Cannula 03/19/25 11:31 O2 Flow Rate 4 03/19/25 11:31 FiO2 60 03/15/25 07:39 BMI result Body Mass Index 20.6 Gen: in no acute distress HEENT: sclera anicteric, moist mucus membranes Neck: supple Lungs: diminished Heart: regular rate and rhythm, no murmurs Abd: soft, non-tender, non-distended Ext: no edema Skin: warm/well-perfused Neuro: alert and oriented x3, no focal findings Psych: appropriate affect Objective Data Active Medications Acetaminophen (Acetaminophen 325 Mg Tablet) 650 mg PO Q6H PRN PRN Reason: Pain, Mild 1-3,fever,headache Last Admin: 03/18/25 19:55 Dose: 650 mg Documented By: RULA Albuterol/Ipratropium (Albuterol/Iprat 2.5/0.5mg 3 Ml Ampul.Neb) 3 ml INHALE Q4H PRN PRN Reason: Shortness of Breath/Wheezing Last Admin: 03/18/25 20:15 Dose: 3 ml Documented By: BOYD Amlodipine Besylate (Amlodipine Besylate 5 Mg Tablet) 5 mg PO DAILY [facility]; Protocol Last Admin: 03/19/25 08:52 Dose: 5 mg Documented By: ARON Azithromycin (Azithromycin 500 Mg Tablet) 500 mg PO Q24H [facility] Stop: 03/19/25 20:01 Last Admin: 03/18/25 19:35 Dose: 500 mg Documented By: RULA Benzonatate (Benzonatate 100 Mg Capsule) 100 mg PO TID PRN PRN Reason: Cough Last Admin: 03/19/25 08:52 Dose: 100 mg Documented By: ARON Calcium Carbonate (Calcium Carbonate 750 Mg Tab.Chew) 750 mg PO Q4H PRN PRN Reason: Heartburn Last Admin: 03/19/25 00:28 Dose: 750 mg Documented By: NESSA Enoxaparin Sodium (Enoxaparin Sodium 40 Mg/0.4 Ml Syringe) 40 mg SUBCUT Q24H [facility] Last Admin: 03/18/25 19:57 Dose: 40 mg Documented By: RULA Guaifenesin (Guaifenesin La 600 Mg Tab.Er.12h) 600 mg PO BID [facility] Last Admin: 03/19/25 08:53 Dose: 600 mg Documented By: ARON Guaifenesin/Dextromethorphan (Guaifenesin Dm 100/10/5 Ml 5 Ml Syrup) 5 ml PO Q4H PRN PRN Reason: Cough Last Admin: 03/18/25 19:50 Dose: 5 ml Documented By: RULA Ceftriaxone Sodium 1 gm/ (Sodium Chloride) 50 mls @ 100 mls/hr IV Q24H [facility] Last Infusion: 03/19/25 09:44 Dose: Infused Documented By: ARON Magnesium Hydroxide (Milk Of Magnesia 30 Ml Oral.Susp) 30 ml PO DAILY PRN PRN Reason: Constipation Melatonin (Melatonin 3 Mg Tablet) 6 mg PO BEDTIME PRN PRN Reason: Insomnia Last Admin: 03/19/25 01:12 Dose: 6 mg Documented By: NESSA Methylprednisolone Sodium Succinate (Methylprednisolone Sod Succ 125 Mg/2 Ml Vial) 40 mg IVPUSH Q12H [facility] Last Admin: 03/19/25 08:52 Dose: 40 mg Documented By: ARON Ondansetron HCl (Ondansetron Hcl 4 Mg/2 Ml Vial) 4 mg IVPUSH Q4H PRN PRN Reason: Nausea and Vomiting Last Admin: 03/19/25 08:52 Dose: 4 mg Documented By: ARON Sodium Chloride (0.9 % Sodium Chloride Flush 3 Ml Syringe) 3 ml IVFLUSH QSHIFT [facility] Last Admin: 03/19/25 09:01 Dose: Not Given Documented By: ARON Non-Admin Reason: Previously Administered Labs 03/18/25 07:00 03/18/25 07:00 Assessment and Plan (1) Acute respiratory failure with hypoxia: Status: Acute (2) Asthma exacerbation: Status: Acute (3) Bilateral pneumonia: Status: Acute Plan d10, 54yo F with HTN + moderate-persistent asthma admitted for hypoxia, not on home O2 acute hypoxic respiratory failure due to acute exacerbation of moderate- persistent asthma complicated by PNA - weaned off HFNC, currently on 4L O2 via [place] - decrease Solumedrol from 40mg q12h to 40mg q24h, continue nebs + IS + Aerobika - azithromycin 03/10-03/20, ceftriaxone 03/14-03/21 - supplemental O2, wean as tolerated HTN: amlodipine VTE ppx: enoxaparin dispo: PT eval requested, will also need home O2 eval prior to d/c In my clinical judgment, the patient requires continued inpatient hospitalization for the following reasons: hypoxia, resp failure requiring HFNC recently Total time managing care of this patient today: 35 minutes. Quality Stroke Does the patient have a stroke diagnosis?: No VTE Prior VTE?: No VTE Risk Level:: Medical - moderate - high VTE Device Contraindication: Treatment Not Indicated VTE Drug Contraindication: N/A - Med Ordered
[2025-03-19] MEDS: Milk of Magnesia 30 ML ORAL.SUSP PO (12:51)
--- NOTE | 2025-03-19 16:16 | MHC.CM.PN ---
PER MD ROUNDS, PT MAY DC TOMORROW AND MAY NEED A HOME O2 EVAL CM FOLLOWING
[2025-03-19] MEDS: 0.9 % Sodium Chloride Flush 3 ML SYRINGE IVFLUSH (20:07)
[2025-03-19] MEDS: guaiFENesin DM 100/10/5 ML 5 ML SYRUP PO (20:07)
[2025-03-20 03:34] VITALS: BP 168/87; PULSE 83; RESP 18; TEMP 36.5; O2SAT 96
[2025-03-20 08:00] VITALS: BP 149/96; PULSE 75; RESP 17; TEMP 36.3; O2SAT 92
[2025-03-20 08:09] VITALS: PULSE 89; PULSE 90; PULSE 91; O2SAT 88; O2SAT 90; O2SAT 93
[2025-03-20] MEDS: guaiFENesin LA 600 MG TAB.ER.12H PO (08:16)
--- NOTE | 2025-03-20 10:14 | PM.DS ---
DS: Providers Provider Date of Service: 03/20/25 Date of admission: 03/10/25 19:50 Date of discharge: 03/20/25 Primary care physician: Em Gil NP Consults: 03/13/25 13:28 Consult to Pulmonology Routine Consulting Provider: [facility] Reason for consultation: hypoxia, ?mucus plugging DS: Diagnosis Discharge Diagnosis (1) Acute respiratory failure with hypoxia: Status: Acute (2) Asthma exacerbation: Status: Acute (3) Bilateral pneumonia: Status: Acute (4) Acute severe exacerbation of moderate persistent asthma: Status: Acute DS: Summary Hospital Course Hospital Course: From the history and physical by the admitting hospitalist, Kaushik Peacock 03/20/29: '54-year-old female with a past medical history of asthma presented to the hospital with a chief complaint of shortness of breath. Patient reports that over the past few days since Saturday; has been having shortness of breath. Using her inhalers with no improvement. Has been gradually worsening. Has been having cough. Denies any fevers. Denies any chest pain or palpitations. Denies any GI or symptoms. Review of all other systems is negative except mentioned above ER course: Per ER team, patient on presentation noted to be has bilateral wheezing, tachypneic and tachycardic; given nebulizations, steroids, magnesium IV; respiratory status improved. Patient was hypoxic to 88%. Placed on supplemental oxygen. Chest x-ray showed no acute cardiopulmonary process.' 54yo F with HTN + moderate-persistent asthma admitted for hypoxia, not on home O2, admitted for acute hypoxic respiratory failure due to acute exacerbation of moderate-persistent asthma complicated by PNA. Treated with IV steroids, azithromycin x10d, and ceftriaxone x7d. Became quite hypoxic requiring high-flow nasal cannula at one point, but eventually weaned completely off oxygen at rest and with exertion. CTA negative for PE; had mucus plugging treated with pulmonary toilet. Discharged on prednisone taper and started on Breo as controller inhaler. Should have outpatient pulmonary rehabilitation through [facility]. Time Attestation Discharge Coordination Time (in mins): 40 Quality: Safe Use of Opioids Does Pt have an Active Cancer Diagnosis on the Problem List?: No Quality: Stroke Does the patient have a stroke diagnosis?: No Physical Exam Vital Signs: Vital Signs: Last Vital Signs Temp 97.4 F 03/20/25 08:00 Pulse 75 03/20/25 08:00 Resp 17 03/20/25 08:00 BP 149/96 H 03/20/25 08:00 Pulse Ox 92 03/20/25 08:00 O2 Del Method Room Air 03/20/25 08:00 O2 Flow Rate 4 03/20/25 03:34 FiO2 60 03/15/25 07:39 BMI result Body Mass Index 20.6 Gen: in no acute distress HEENT: sclera anicteric, moist mucus membranes Neck: supple Lungs: clear to auscultation bilaterally Heart: regular rate and rhythm, no murmurs Abd: soft, non-tender, non-distended Ext: no edema Skin: warm/well-perfused Neuro: alert and oriented x3, no focal findings Psych: appropriate affect DS: Data Data Completed and Pending Completed studies during hospitalization [Text1]: Laboratory Results WBC 9.0 X10*3/uL (4.8-10.8) 03/18/25 07:00 RBC 4.05 X10*6/uL (4.20-5.50) L 03/18/25 07:00 Hgb 13.1 g/dl (12.0-16.0) 03/18/25 07:00 Hct 37.6 % (37.0-47.0) 03/18/25 07:00 MCV 92.8 fL (80.0-98.0) 03/18/25 07:00 MCH 32.3 pg (27.0-33.0) 03/18/25 07:00 MCHC 34.8 g/dl (31.0-35.0) 03/18/25 07:00 RDW 13.2 % (11.0-16.0) 03/18/25 07:00 Plt Count 279 X10*3/uL (160-400) 03/18/25 07:00 MPV 9.1 fL (9.4-12.3) L 03/18/25 07:00 Immature Gran % (Auto) 0.9 % (0.0-0.4) H 03/18/25 07:00 Neut % (Auto) 87.2 % (45-73) H 03/18/25 07:00 Lymph % (Auto) 8.8 % (20-40) L 03/18/25 07:00 Pierce % (Auto) 3.1 % (2-11) 03/18/25 07:00 Eos % (Auto) 0.0 % (0-4) 03/18/25 07:00 Baso % (Auto) 0.0 % (0-2) 03/18/25 07:00 Lymph # (Auto) 0.8 X10*3/uL (1.2-4.9) L 03/18/25 07:00 Pierce # (Auto) 0.3 X10*3/uL (0.1-1.2) 03/18/25 07:00 Eos # (Auto) 0.0 X10*3/uL (0.0-0.4) 03/18/25 07:00 Baso # (Auto) 0.0 X10*3/uL (0.0-0.2) 03/18/25 07:00 Abs Immat Gran (auto) 0.08 X10*3/uL (0.00-0.03) H 03/18/25 07:00 Absolute Neuts (auto) 7.8 x10*3/uL (2.0-8.3) 03/18/25 07:00 Absolute Nucleated RBC 0.000 X10*3/uL (0.0-0.012) 03/18/25 07:00 Nucleated RBC % (auto) 0.0 /100WBC (0.0-0.2) 03/18/25 07:00 Hold Blue Top SEE NOTE 03/10/25 14:52 O2 Saturation 84.0 % 03/13/25 11:03 ABG pH at Pt Temp 7.44 (7.35-7.45) 03/13/25 11:03 ABG pCO2 at Pt Temp 38 mmHg (32-45) 03/13/25 11:03 ABG pO2 at Pt Temp 57 mmHg (83-108) L 03/13/25 11:03 ABG HCO3 26 mmol/L (22-26) 03/13/25 11:03 ABG Base Excess (Actual) 2.9 mmol/L 03/13/25 11:03 Sodium 139 mmol/L (135-145) 03/18/25 07:00 Potassium 4.2 mmol/L (3.3-5.1) 03/18/25 07:00 Chloride 105 mmol/L (96-108) 03/18/25 07:00 Carbon Dioxide 27 mmol/L (22-29) 03/18/25 07:00 Anion Gap 11 (12-20) L 03/18/25 07:00 BUN 17 mg/dL (9-16) H 03/18/25 07:00 Creatinine 0.71 mg/dL (0.5-1.4) 03/18/25 07:00 Estim Creat Clear Calc 79.4 03/18/25 07:00 Estimated GFR > 60 03/18/25 07:00 Random Glucose 114 mg/dL (60-115) 03/15/25 07:00 Fasting Glucose 138 mg/dL (60-99) H 03/18/25 07:00 Calcium 8.5 mg/dL (8.4-10.2) 03/18/25 07:00 Magnesium 2.2 mg/dL (1.6-2.6) 03/15/25 07:00 Total Bilirubin 0.3 mg/dL (0.0-1.0) 03/18/25 07:00 Direct Bilirubin 0.1 mg/dL (0.0-0.5) 03/14/25 06:53 AST 15 U/L (5-31) 03/18/25 07:00 ALT 29 U/L (0-31) 03/18/25 07:00 Alkaline Phosphatase 78 U/L (39-117) 03/18/25 07:00 Total Protein 5.6 g/dL (6.5-8.0) L 03/18/25 07:00 Albumin 3.4 g/dL (3.5-5.0) L 03/18/25 07:00 Respiratory Panel Cope See Note 03/14/25 12:35 Adenovirus (Rapid PCR) Not Detected (Not Detect.) 03/14/25 12:35 B.pert (TEM-PCR) Not Detected (Not Detect.) 03/14/25 12:35 B.parapertussis DNA PCR Not Detected (Not Detect.) 03/14/25 12:35 C. pneumoniae DNA (PCR) Not Detected (Not Detect.) 03/14/25 12:35 Coronavirus OC43 (PCR) Not Detected (Not Detect.) 03/14/25 12:35 Coronavirus HKU1 (PCR) Not Detected (Not Detect.) 03/14/25 12:35 Coronavirus 229E (PCR) Not Detected (Not Detect.) 03/14/25 12:35 Coronavirus NL63 (PCR) Not Detected (Not Detect.) 03/14/25 12:35 Human Metapneumovir PCR Not Detected (Not Detect.) 03/14/25 12:35 Influenza A (RT-PCR) Not Detected (Not Detect.) 03/14/25 12:35 Influenza A (H1) PCR Not Detected (Not Detect.) 03/14/25 12:35 Influ A (H1/09) PCR Not Detected (Not Detect.) 03/14/25 12:35 Influenza A (H3) PCR Not Detected (Not Detect.) 03/14/25 12:35 Influenza Type A (PCR) NEGATIVE (Negative) 03/10/25 14:52 Influenza B (RT-PCR) Not Detected (Not Detect.) 03/14/25 12:35 Influenza Type B (PCR) NEGATIVE (Negative) 03/10/25 14:52 M. pneumoniae (PCR) Not Detected (Not Detect.) 03/14/25 12:35 Parainfluenza 1 (PCR) Not Detected (Not Detect.) 03/14/25 12:35 Parainfluenza 2 (PCR) Not Detected (Not Detect.) 03/14/25 12:35 Parainfluenza 3 (PCR) Not Detected (Not Detect.) 03/14/25 12:35 Parainfluenza 4 (PCR) Not Detected (Not Detect.) 03/14/25 12:35 RSV (PCR) Not Detected (Not Detect.) 03/14/25 12:35 RSV RNA Qual (PCR) NEGATIVE (Negative) 03/10/25 14:52 Entero/Rhino (PCR) Not Detected (Not Detect.) 03/14/25 12:35 SARS-CoV-2 RNA (RT-PCR) Not Detected (Not Detect.) 03/14/25 12:35 Discharge Plan Discharge Anticipated Discharge Date/Time: 03/20/25 10:09 Patient Disposition: Home, Self-Care Discharge Diagnosis: asthma exacerbation, pneumonia, hypoxia Referrals: Physical Therapy - [facility] [Outside] - 1 Week Referral Note: outpatient pulmonary rehabilitation Em Gil [employer] [Primary Care Provider, Family Practice] - 1 Week Discharge Medications: New guaifenesin [Mucinex] 600 mg Tablet Extended Release 12hr 600 mg PO BID Qty: 14 0RF prednisone 10 mg tablet See Rx Instructions .ROUTE .COMPLEX Qty: 20 0RF Rx Instructions: 40 mg daily x 2 days, then 30 mg daily x 2 days, then 20 mg daily x 2 days, then 10 mg daily x 2 days ondansetron 4 mg tablet,disintegrating 4 mg PO Q8H PRN (Reason: nausea and vomiting) Qty: 10 0RF fluticasone furoate-vilanterol [Breo Ellipta] 100-25 mcg/dose blister with device 1 inh inhalation DAILY Qty: 60 0RF Continued amlodipine 5 mg tablet 5 mg PO DAILY acetaminophen 500 mg tablet 1,000 mg PO Q6H PRN (Reason: fever) albuterol sulfate 2.5 mg /3 mL (0.083 %) solution for nebulization 2.5 mg inhalation Q4H PRN (Reason: Shortness Of Breath Or Wheezing) Qty: 50 0RF albuterol sulfate [Ventolin HFA] 90 mcg/actuation HFA aerosol inhaler 2 puff INHALATION Q4H PRN (Reason: Shortness Of Breath Or Wheezing) Qty: 8.5 0RF Discharge Orders: Discharge Order (Routine); Ordered 03/20/25 Ordered By: Kellie Still Diet: Advance to usual diet Activity on Discharge: As tolerated Stand Alone Forms: Patient Portal Discharge page Print Language: Armenian Care Plan Goals: respiratory health Health Concerns: asthma exacerbation, pneumonia, hypoxia Plan of Treatment: prednisone 10 mg tabs, taper as follows: 40 mg (4 tabs) daily x 2 days, then 30 mg (3 tabs) daily x 2 days, then 20 mg (2 tabs) daily x 2 days, then 10 mg (1 tab) daily x 2 days use albuterol inhaler or nebulization for rescue start controller inhale Breo 1 puff daily outpatient pulmonary rehabilitation through [facility] avoid smoking and air pollution Please follow up with your primary care doctor within 1 week. Return to the hospital if you experience recurrent or worsening symptoms. Assessment: See Discharge Summary.
--- NOTE | 2025-03-20 10:32 | MHC.CM.PN ---
PT CLEARED TO DC HOME TODAY WITH NO SERVICES FAMILY TO TRANSPORT
== END 2025-03-20 11:02 | disposition home or self-care (01) | DRG 141 ==
LOC: HO.ED 15:11 → HO.EDOVER 20:36 → HO.IMC 22:47 → HO.S3 03-13 01:29 → HO.IMC 03-13 13:34 → HO.S3 03-18 09:57
PROVIDERS: Hospitalist; Internal Medicine; Physician Assistant; Admitting Provider Hospitalist; Emergency Provider Student in an Organized Health Care Education/Training Program; PCP Nurse Practitioner Family; Visit Provider Family Medicine
DX: J45.41 Moderate persistent asthma with (acute) exacerbation (principal); J96.01 Acute respiratory failure with hypoxia; J18.9 Pneumonia, unspecified organism; J98.11 Atelectasis; I10 Essential (primary) hypertension; F17.210 Nicotine dependence, cigarettes, uncomplicated; Z20.822 Contact with and (suspected) exposure to COVID-19; Z71.6 Tobacco abuse counseling; Z79.51 Long term (current) use of inhaled steroids; Z79.899 Other long term (current) drug therapy
CPT/HCPCS: 36415; 36600; 71045; 71275; 80048; 80053; 80076; 82803; 83735; 85025; 85027; 87633; 87637; 93005; 94640; 94799; 97161; 99285; J0696; J1650; J2405; J2919; J3475; Q9967

== ENCOUNTER → 2025-03-10 14:42 | Outpatient (BNV) | payer OTHER, SELFPAY | PROVIDERS: Emergency Provider Student in an Organized Health Care Education/Training Program; PCP Nurse Practitioner Family; Visit Provider Radiology Diagnostic Radiology | DX: J18.9 Pneumonia, unspecified organism (principal) | CPT/HCPCS: 71045 ==

== ENCOUNTER → 2025-03-10 14:42 | Outpatient (BNV) | payer OTHER, SELFPAY | PROVIDERS: Admitting Provider Hospitalist; Emergency Provider Student in an Organized Health Care Education/Training Program; PCP Nurse Practitioner Family; Visit Provider Internal Medicine | DX: R00.0 Tachycardia, unspecified (principal) | CPT/HCPCS: 93010 ==

== ENCOUNTER 2025-03-10 19:50 | Outpatient (BNV) | payer OTHER, SELFPAY | END 2025-03-13 11:00 | PROVIDERS: Admitting Provider Hospitalist; Emergency Provider Student in an Organized Health Care Education/Training Program; PCP Nurse Practitioner Family; Visit Provider Radiology Diagnostic Radiology | DX: J18.9 Pneumonia, unspecified organism (principal); R91.8 Other nonspecific abnormal finding of lung field; J98.11 Atelectasis | CPT/HCPCS: 71045; 71275 ==

== ENCOUNTER → 2025-03-10 19:50 | Outpatient (BNV) | payer OTHER, SELFPAY | PROVIDERS: Admitting Provider Hospitalist; Emergency Provider Student in an Organized Health Care Education/Training Program; PCP Nurse Practitioner Family; Visit Provider Internal Medicine Pulmonary Disease | DX: J96.01 Acute respiratory failure with hypoxia (principal); J45.909 Unspecified asthma, uncomplicated | CPT/HCPCS: 99222 ==

== ENCOUNTER → 2025-03-10 19:50 | Outpatient (BNV) | payer OTHER, SELFPAY | PROVIDERS: Admitting Provider Hospitalist; Emergency Provider Student in an Organized Health Care Education/Training Program; PCP Nurse Practitioner Family; Visit Provider Internal Medicine | DX: J96.01 Acute respiratory failure with hypoxia (principal); J18.9 Pneumonia, unspecified organism; J45.901 Unspecified asthma with (acute) exacerbation | CPT/HCPCS: 99223; 99233 ==